=== PATIENT | female | born 1950 | race Caucasian/White ===

== ENCOUNTER → 2022-10-12 16:15 | Outpatient (BNVA) | payer MEDICARE, SELFPAY | PROVIDERS: PCP Physician Assistant Medical; Visit Provider Internal Medicine Endocrinology, Diabetes & Metabolism | DX: M81.0 Age-related osteoporosis without current pathological fracture (principal) | CPT/HCPCS: 99202 ==

== ENCOUNTER → 2023-02-19 11:28 | Outpatient (BNVA) | payer MEDICARE, SELFPAY | PROVIDERS: PCP Physician Assistant Medical; Visit Provider Internal Medicine Endocrinology, Diabetes & Metabolism | DX: M81.0 Age-related osteoporosis without current pathological fracture (principal) | CPT/HCPCS: 99212 ==

== ENCOUNTER 2023-06-25 10:34 | Outpatient (AMB) | payer MEDICARE, SELFPAY ==
--- NOTE | 2023-06-25 10:39 | A.OFFVIS_ITS ---
Intake Vital Signs 06/25/23 10:41 Height 5 ft 3.43 in Weight 130 lb 15.273 oz BMI 22.9 BP 130/72 Blood Pressure Location Lt brachial Position Sitting Pulse 80 Pulse Source Pulse Oximeter Intake Visit Reasons: f/u osteoporosis Intake Note: Patient present for Osteoporosis follow up visit. 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 Phillips at [facility] First diagnosed in 2019. Received treatment in the past with Reclast ,in 2019 . Tolerated treatment well without complication. No history of pathologic fracture or ONJ. Has several servings of dietary calcium per day in the form of cheese, brocoli . Not Takes Calcium supplement Takes ? IU of Vitamin D daily. Denies ever using PPI, anticoagulant, antiepileptic or glucocorticoid medication. 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 Nl menmses Denies history of Kidney stones: Denies family history of Osteoporosis or hip fracture. UTD on dental cleanings and sees dentist every 6 months. No planned upcoming dental work or extractions. DXA dated 10/21/18 :T-Score of -3.0 in L-S repeat DEXA bone density showed a T- score femoral neck of -2.9 Labs: Secondary workup was negative [facility] Medical History (Updated 10/12/22 @ 16:28 by Seb Muhammad MD) Osteoporosis Surgical History Hx of appendectomy Family History Mother Alzheimer disease Father No problems noted. Social History Alcohol intake: current Alcohol type: hard liquor and other Patient Tobacco Use Status: Former Tobacco user Quit Date: >45 yrs ago Assessment & Plan Assessment & Plan (1) Osteoporosis: Code(s): M81.0 - Age-related osteoporosis without current pathological fracture Plan: This is a 73-year-old white female diagnosed with osteoporosis. Secondary workup was negative The plan is to talk about possible pharmacologic treatment including reinitiating Reclast versus p.o. bisphosphonate versus Prolia. Also, discussed checking urine NTX to see if suppressed. If suppressed may following vitamin-D and calcium without pharmacologic therapy until increases and then can give anti resorptive agent. She is choosing this option. Orders: Orders Collagen Crosslinks NTX Today M81.0 - Age-related osteoporosis without current pathological fracture Coding Level of Care Code Est Pt Level 3 (01147) Diagnoses Osteoporosis M81.0
[2023-06-25 10:41] VITALS: BP 130/72; PULSE 80; BMI 22.9
== END 2023-06-25 11:09 | disposition home or self-care (01) ==
PROVIDERS: PCP Physician Assistant Medical; Visit Provider Internal Medicine Endocrinology, Diabetes & Metabolism
DX: M81.0 Age-related osteoporosis without current pathological fracture (principal)
CPT/HCPCS: 99213

== ENCOUNTER → 2023-06-25 10:34 | Outpatient (BNVA) | payer MEDICARE, SELFPAY | PROVIDERS: PCP Physician Assistant Medical; Visit Provider Internal Medicine Endocrinology, Diabetes & Metabolism | DX: M81.0 Age-related osteoporosis without current pathological fracture (principal) | CPT/HCPCS: 99212 ==

== ENCOUNTER 2023-07-11 09:48 | Outpatient (REF) | payer MEDICARE, SELFPAY ==
[2023-07-18 21:38] LABS: N-Telopeptide 34 (see note); NTXCreaRU 78 mg/dL (20-275)
== END 2023-07-11 09:49 | disposition home or self-care (01) ==
LOC: HO.10HDLNP 09:48
PROVIDERS: Visit Provider Internal Medicine Endocrinology, Diabetes & Metabolism
DX: M81.0 Age-related osteoporosis without current pathological fracture (principal)
CPT/HCPCS: 82523

== ENCOUNTER 2024-01-28 10:33 | Outpatient (AMB) | payer MEDICARE, SELFPAY ==
[2024-01-28 10:36] VITALS: BP 132/70; PULSE 68; BMI 22.7
--- NOTE | 2024-01-28 10:36 | MHC.OFFVIS ---
Vital Signs 01/28/24 10:36 Height 5 ft 3.43 in Weight 129 lb 10.109 oz BMI 22.7 BP 132/70 Blood Pressure Location Lt brachial Position Sitting Pulse 68 Pulse Source Pulse Oximeter Intake Visit Reasons: Osteoporosis Intake Note: Patient presents today for Osteoporosis follow up. 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 Phillips at [facility] First diagnosed in 2019. Received treatment in the past with Reclast ,in 2019 . Tolerated treatment well without complication. No history of pathologic fracture or ONJ. Has several servings of dietary calcium per day in the form of cheese, brocoli . Not Takes Calcium supplement Takes ? IU of Vitamin D daily. Denies ever using PPI, anticoagulant, antiepileptic or glucocorticoid medication. 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 Nl menmses Denies history of Kidney stones: Denies family history of Osteoporosis or hip fracture. UTD on dental cleanings and sees dentist every 6 months. No planned upcoming dental work or extractions. DXA dated 10/21/18 :T-Score of -3.0 in L-S repeat DEXA bone density showed a T-score femoral neck of -2.9 Labs: Secondary workup was negative [facility] Medical History (Updated 10/12/22 @ 16:28 by Seb Muhammad MD) Osteoporosis Surgical History Hx of appendectomy Family History Mother Alzheimer disease Father No problems noted. Social History Alcohol intake: current Alcohol type: hard liquor and other Patient Tobacco Use Status: Former Tobacco user Quit Date: >45 yrs ago Physical Exam Vital Signs: Last Vital Signs Pulse 68 01/28/24 10:36 BP 132/70 01/28/24 10:36 BMI result Body Mass Index 22.7 Assessment & Plan Assessment & Plan (1) Osteoporosis: Code(s): M81.0 - Age-related osteoporosis without current pathological fracture Category: Medical Plan: This is a 73-year-old white female diagnosed with osteoporosis. Secondary workup was negative. Received Reclast in the past with suppressed NTX The plan is to talk about possible pharmacologic treatment including reinitiating Reclast versus p.o. bisphosphonate versus Prolia. Also, discussed checking urine NTX to see if suppressed. If suppressed may following vitamin-D and calcium without pharmacologic therapy until increases and then can give anti resorptive agent. Patient is opting to hold off on pharmacologic therapy until thel repeat DEXA 1 year Orders: Orders Collagen Crosslinks NTX Today M81.0 - Age-related osteoporosis without current pathological fracture XR DEXA axial skeleton Today M81.0 - Age-related osteoporosis without current pathological fracture Coding Level of Care Code Est Pt Level 3 (34781) Diagnoses Osteoporosis M81.0
== END 2024-01-28 11:02 | disposition home or self-care (01) ==
PROVIDERS: PCP Physician Assistant Medical; Visit Provider Internal Medicine Endocrinology, Diabetes & Metabolism
DX: M81.0 Age-related osteoporosis without current pathological fracture (principal)
CPT/HCPCS: 99213

== ENCOUNTER → 2024-01-28 10:33 | Outpatient (BNVA) | payer MEDICARE, SELFPAY | PROVIDERS: PCP Physician Assistant Medical; Visit Provider Internal Medicine Endocrinology, Diabetes & Metabolism | DX: M81.0 Age-related osteoporosis without current pathological fracture (principal) | CPT/HCPCS: 99212 ==

== ENCOUNTER 2025-01-27 10:03 | Outpatient (AMB) | payer MEDICARE, SELFPAY ==
[2025-01-27 10:07] VITALS: BP 142/66; PULSE 69; O2SAT 90; BMI 22.9
--- NOTE | 2025-01-27 10:07 | MHC.OFFVIS ---
Vital Signs 01/27/25 10:07 Height 5 ft 3.43 in Weight 130 lb 15.273 oz BMI 22.9 BP 142/66 H Blood Pressure Location Lt brachial Position Sitting Pulse 69 Pulse Source Pulse Oximeter Pulse Oximetry (%) 90 L Oxygen Delivery Method Room Air Intake Visit Reasons: Osteoporosis Intake Note: Patient presents today for Osteoporosis follow up. Kaiako Kura [place] Maori Required: No Accompanied by: Self / Same As Patient Allergies No Known Allergies Allergy (Verified 01/27/25 10:12) Medication List - Last Reconciled 01/27/25 by Seb Muhammad MD amitriptyline 25 mg PO BEDTIME atorvastatin 20 mg PO DAILY calcium carbonate (Calcium 600) 600 mg PO DAILY cyclobenzaprine 10 mg PO TID dicyclomine 10 mg PO BID multivitamin 1 tab PO DAILY sumatriptan succinate 100 mg PO DAILY PRN HPI Comments Details: 74 YO F with is seen in consultation at the request of PCP for Osteoporosis.Saw Dr. Phillpis at [facility] First diagnosed in 2019. Received treatment in the past with Reclast ,in 2019 . Tolerated treatment well without complication. No history of pathologic fracture or ONJ. Has several servings of dietary calcium per day in the form of cheese, brocoli . Not Takes Calcium supplement Takes ? IU of Vitamin D daily. Denies ever using PPI, anticoagulant, antiepileptic or glucocorticoid medication. 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 Nl menmses Denies history of Kidney stones: Denies family history of Osteoporosis or hip fracture. UTD on dental cleanings and sees dentist every 6 months. No planned upcoming dental work or extractions. DXA dated 10/21/18 :T-Score of -3.0 in L-S repeat DEXA bone density showed a T-score femoral neck of -2.9 Labs: Secondary workup was negative The patient is a 74-year-old female presenting with the need for bone density testing and bone turnover marker evaluation. She has a history of osteoporosis, and there was a previous misunderstanding about her bone density test scheduling, as it was not conducted as planned. The patient is interested in assessing bone turnover markers and was advised to provide a second morning urine sample in a fasting state. However, due to having eaten early in the morning, she could not proceed with this test on the same day. She reports no recent fractures and continues to take calcium and vitamin D supplements. [facility] Medical History (Updated 10/12/22 @ 16:28 by Seb Muhammad MD) Osteoporosis Surgical History Hx of appendectomy Family History Mother Alzheimer disease Father No problems noted. Social History Alcohol intake: current Alcohol type: hard liquor and other Patient Tobacco Use Status: Former Tobacco user Physical Exam Vital Signs: Last Vital Signs Pulse 69 01/27/25 10:07 BP 142/66 H 01/27/25 10:07 Pulse Ox 90 L 01/27/25 10:07 Oxygen Delivery Method Room Air 01/27/25 10:07 BMI result Body Mass Index 22.9 Assessment & Plan Assessment & Plan (1) Osteoporosis: Code(s): M81.0 - Age-related osteoporosis without current pathological fracture Category: Medical Plan: This is a 74-year-old white female diagnosed with osteoporosis. Secondary workup was negative. Received Reclast in the past with suppressed NTX The plan is to repeat DEXA bone density as well as urine NTX and determine whether pharmacologic treatment is necessary 1. Osteoporosis The patient needs a bone density test to monitor her osteoporosis, which was not done due to scheduling issues. The test will be rescheduled closer to her home. She also requires a bone turnover marker evaluation, with a fasting urine sample needed for analysis. Her current treatment includes calcium and vitamin D supplements, and weight-bearing exercises are recommended. Follow-up is planned in three months. I discussed with the patient the importance of completing the bone density test and the bone turnover marker evaluation. We addressed the logistical challenges that led to the tests not being done previously and agreed to pursue these tests at a facility closer to her location. I explained the procedure for the bone turnover marker test, emphasizing the need for a fasting urine sample. We talked about the benefits of weight-bearing exercises in supporting bone health. The patient was informed about the continued use of calcium and vitamin D supplements and was reassured that no immediate concerns, such as fractures, were present. We agreed on a follow-up in three months to review test results and reassess her treatment plan. - Schedule a bone density test at a nearby facility. - Provide a fasting urine sample for the bone turnover marker test. - Continue taking calcium and vitamin D supplements as prescribed. - Engage in weight-bearing exercises to support bone health. - Follow up in three months for reassessment. The patient had an opportunity to ask questions regarding treatment plan. The patient expressed understanding and agreement with the above treatment plan. Patient was informed and verbally consented to the use of an ambient scribe for clinic note documentation during this visit. Coding Level of Care Code Est Pt Level 3 (16922) Diagnoses Osteoporosis M81.0
--- OUTSIDE RECORDS SUMMARY | 2025-01-27 10:59 | XMS_ITS | Data Portability ---
Author Organization [facility] Pain Managem vandana, PAIN OFFICE Address [address] 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 On exam she has positive facet loading with tenderness in L4-5 and L5-S1 facet region in the right lumbar region. MRI Lumbar spine shows arthritic changes in the facet at L4-5 and L5-S1 levels. Currently her back pain is her worse pain.She is here for a Radio frequency ablation of right Lumbar facet at Right L4-5 and L5-S1 levels under fluoroscopic guidance . The risks and benefits of the procedure were discussed in detail. She wishes to proceed. She will follow up in six weeks. [email or web address] Not available 12/24/2023 16:11:22 02/14/2024 02/14/2024 Sharlene Vasquez is a 73 year old woman with right sided low back pain which is worse for the past five years. On exam she has positive facet loading with tenderness in L4-5 and L5-S1 facet region in the right lumbar region. MRI Lumbar spine shows arthritic changes in the facet at L4-5 and L5-S1 levels. Currently her back pain is her worse pain.She is here for a follow up after a Radio frequency ablation of right Lumbar facet at Right L4-5 and L5-S1 levels under fluoroscopic guidance . She reports 90%pain benefit which is ongoing. She can follow up as needed. [email or web address] Not available 02/14/2024 11:05:57 05/14/2024 05/14/2024 Sharlene Vasquez is a 73 year old woman with right sided low back pain which is worse for the past five years. On exam she has positive facet loading with tenderness in L4-5 and L5-S1 facet region in the right lumbar region. MRI Lumbar spine shows arthritic changes in the facet at L4-5 and L5-S1 levels. Currently her back pain is her worse pain. She is here for a repeat Lumbar facet joint steroid injections at Right L4-5 and L5-S1 levels under fluoroscopic guidance . The risks and benefits of the procedure were discussed in detail. She wishes to proceed. She will follow up in 8 weeks. [email or web address] Not available 05/14/2024 16:52:39 09/30/2024 09/30/2024 Sharlene Vasquez is a 74 year old woman with right sided low back pain which is worse for the past five years. On exam she has positive facet loading with tenderness in L4-5 and L5-S1 facet region in the right lumbar region. MRI Lumbar spine shows arthritic changes in the facet at L4-5 and L5-S1 levels. Currently her back pain is her worse pain. She is here for a repeat Lumbar facet joint steroid injections at Right L4-5 and L5-S1 levels under fluoroscopic guidance . The risks and benefits of the procedure were discussed in detail. She wishes to proceed. She will follow up in 12 weeks. [email or web address] Not available 09/30/2024 15:51:22 12/30/2024 12/30/2024 Sharlene Vasquez is a 74 year old woman with right sided low back pain which is worse for the past five years. On exam she has positive facet loading with tenderness in L4-5 and L5-S1 facet region in the right lumbar region. MRI Lumbar spine shows arthritic changes in the facet at L4-5 and L5-S1 levels. Currently her back pain is her worse pain. She is here for a repeat Lumbar facet joint steroid injections at Right L4-5 and L5-S1 levels under fluoroscopic guidance . The risks and benefits of the procedure were discussed in detail. She wishes to proceed. She will follow up in 12 weeks. She is interested in the intracept procedure and will discuss with her PCP. [email or web address] Not available 12/30/2024 11:34:16 Plan of Treatment Reminders Order Date Submit Date Provider Last Modified By Organization Details Last Modified Time Details Appointments PROCEDURE 2024 10:00A M Joleen mata MD Not available Not available Not available Lab None recorded. Referral None recorded. Procedures None recorded. Surgeries None recorded. Imaging None recorded. Medication Orders None recorded. Patient TargetsNo targets recorded. Patient Instructions Encounter Date Encounter Id Patient Instructions Last Modified By Organization Details Last Modified Time 12/24/2023 [id number] She was advised against bed rest lasting longer than four days and to continue activities as tolerated. [email or web address] Not available 12/24/2023 16:10:45 02/14/2024 [id number] She was advised against bed rest lasting longer than four days and to continue activities as tolerated. [email or web address] Not available 02/14/2024 11:05:14 05/14/2024 [id number] She was advised against bed rest lasting longer than four days and to continue activities as tolerated. [email or web address] Not available 05/14/2024 16:52:40 09/30/2024 [id number] She was advised against bed rest lasting longer than four days and to continue activities as tolerated. [email or web address] Not available 09/30/2024 14:56:19 12/30/2024 [id number] She was advised against bed rest lasting longer than four days and to continue activities as tolerated. [email or web address] Not available 12/30/2024 11:31:33 Reason for Referral None Reported. Problems Name Problem SNOMED Code Status Onset Date Resolution Date Notes Provider Name and Address Organization Details Recorded Time Lumbosacral spondylosis without myelopathy [id number] Active Joleen mata MD [address] , [address], [place], [address], [place] [facility] 14:09:24 Problem Notes None recorded. Procedures Surgical History Date Name Laterality Status Provider Name and Address Organization Details Recorded Time 12/31/19 25 Fluoroscopic Guided Lumbar Facet Steroid Injections of levels completed Joleen Ramirez MD [address] , [address], [place], [address], [place] [facility] 12/30/2024 11:32:43 09/30/19 25 Fluoroscopic Guided Lumbar Facet Steroid Injections of levels completed Joleen Ramirez MD [address] , [address], [place], [address], [place] [facility] 09/30/2024 15:32:03 05/14/20 24 Fluoroscopic Guided Lumbar Facet Steroid Injections of levels completed [facility] [address] [facility] [address], [place], [address], [place] [facility] 05/14/2024 16:53:31 12/24/19 24 Radiofrequency of Lumbar/Sacral medial branches supplying the facets under fluoroscopic guidance completed Joleen Ramirez MD [address] , [address], [place], [address], [place] [facility] 12/24/2023 16:10:14 07/31/20 23 Fluoroscopic Guided Lumbar Facet Steroid Injections of levels completed Joleen Ramirez MD [address] , [address], [place], [address], [place] [facility] 07/31/2023 09:58:57 04/24/20 23 Fluoroscopic Guided Lumbar Facet Steroid Injections of levels completed Joleen Ramirez MD [address] , [address], [place], [address], [place] [facility] 04/24/2023 10:55:11 01/16/20 23 Fluoroscopic Guided Lumbar Facet Steroid Injections of levels completed [facility]oleen Ramirez [facility] [address] [facility] [address], [place], [address], [place] [facility] 01/15/2023 16:21:58 09/02/19 22 repair of urinary bladder completed Yanet Shea [place] [facility] 01/14/2023 13:42:45 Appendectomy completed Yanet Shea [place] [facility] 01/14/2023 13:42:14 Imaging Results None recorded. Procedure Notes None recorded. Medical Equipment None Reported. Allergies No known drug allergies Medications Name Sig Start Date Stop Date Status Note LastModified by Organization Details LastModified Time cyclobenzap rine 10 mg tablet TAKE 1 TABLET BY MOUTH THREE TIMES A DAY 01/14 completed Not Available Not Available Not Available acetaminoph en 325 mg tablet TAKE 2 TABS BY MOUTH EVERY 4 HOURS NEEDED FOR PAIN active Not Available Not Available No t Available atorvastati n 20 mg tablet TAKE 1 TABLET BY MOUTH EVERYDAY AT BEDTIME active Not Available Not Available No t Available sumatriptan 100 mg tablet TAKE 1 TABLET BY MOUTH EVERY DAY NEEDED DIRECTED - MAX OF 2 TABLETS A DAY active Not Available Not Available No t Available meloxicam 15 mg tablet TAKE 1 TABLET BY MOUTH EVERY DAY WITH MEALS FOR 30 DAYS 07/01 completed Not Available Not Available Not Available phenazopyri dine 200 mg tablet TAKE 1 TABLET BY MOUTH THREE TIMES A DAY FOR 2 DAYS 01/14 completed Not Available Not Available Not Available doxycycline hyclate 50 mg capsule TAKE 1 CAPSULE BY MOUTH TWICE A DAY 09/30 completed Not Available Not Available Not Available amoxicillin 500 mg tablet 02/13 completed Not Available Not Available Not Available hydrocortis one 2.5 % topical cream with perineal applicator APPLY A SMALL AMOUNT TO AFFECTED AREA TWICE A DAY NEEDED FOR HEMORRHOI DS active Not Available Not Available No t Available amitriptyli ne 25 mg tablet TAKE 1 TABLET BY MOUTH EVERY DAY AT BEDTIME active Not Available Not Available No t Available erythromyci n 5 mg/gram (0.5 %) eye ointment APPLY TO AFFECTED AREA OF LEFT UPPER LID THREE TIMES A DAY active Not Available Not Available No t Available ibuprofen 400 mg tablet TAKE 1 TABLET BY MOUTH EVERY 4 HOURS NEEDED FOR PAIN 02/13 completed Not Available Not Available Not Available omeprazole 20 mg capsule,del ayed release TAKE 1 CAPSULE EVERY DAY BY ORAL ROUTE BEFORE MEALS FOR 30 DAYS. 01/14 completed Not Available Not Available Not Available ibuprofen 600 mg tablet active Not Available Not Available Not Available estradiol 0.01% (0.1 mg/gram) vaginal cream USE 1 GRAM VAGINALLY EVERY SATURDAY AND SATURDAY active Not Available Not Available No t Available methylpredn isolone 4 mg tablets in a dose pack TAKE 6 TABLETS ON DAY 1 DIRECTED ON PACKAGE AND DECREASE BY 1 TAB EACH DAY FOR A TOTAL OF 6 DAYS 01/14 completed Not Available Not Available Not Available dicyclomine 10 mg capsule TAKE 1 CAPSULE BY MOUTH THREE TIMES A DAY NEEDED active Not Available Not Available No t Available tobramycin 0.3 %-dexametha sone 0.1 % eye drops,suspe nsion INSTILL 1 DROP INTO LEFT EYE 4 TIMES DAILY FOR 1 WEEK active Not Available Not Available No t Available oxycodone 5 mg tablet TAKE 1 TABLET BY MOUTH EVERY 6 HOURS, NEEDED FOR PAIN 01/14 completed Not Available Not Available Not Available cyclosporin e 0.05 % eye drops in a dropperette INSTILL 1 DROP INTO BOTH EYES TWICE A DAY active Not Available Not Available No t Available doxycycline hyclate Takes 1 - 2 capsules daily prn for GI upset 02/13 completed Not Available Not Available Not Available multivitami n Takes 1 tablet daily active Not Available Not Available No t Available Gavilax 17 gram/dose oral powder TAKE 17 GM BY MOUTH DAILY,INS TR:DISSOL VE IN WATER BEFORE TAKING 02/14 completed Not Available Not Available Not Available doxycycline 100mg capsule and topical skin cleanser no.19 01/14 completed Not Available Not Available Not Available Vitals Date Recorded Body height Heart rate Oxygen saturation Oxygen saturation in Arterial blood by Pulse oximetry Systolic blood pressure Diastolic blood pressure Provider Name and Address Organization Details Last Updated DateTime 5 160.02 cm 66 /min 99 % 99 % 158 mm[Hg] 80 mm[Hg] Stephania Garcia [facility] Pain Management 5 10:56:25 Date Recorded Body height Heart rate Oxygen saturation Oxygen saturation in Arterial blood by Pulse oximetry Systolic blood pressure Diastolic blood pressure Provider Name and Address Organization Details Last Updated DateTime 4 160.02 cm 65 /min 99 % 99 % 150 mm[Hg] 74 mm[Hg] Dania Samayoa [facility] Pain Management 4 14:28:28 Date Recorded Body height Heart rate Oxygen saturation Oxygen saturation in Arterial blood by Pulse oximetry Systolic blood pressure Diastolic blood pressure Provider Name and Address Organization Details Last Updated DateTime 5 160.02 cm 66 /min 100 % 100 % 136 mm[Hg] 77 mm[Hg] Stephania Garcia [facility] Pain Management 5 11:09:24 Date Recorded Body height Body mass index (BMI) Body weight Heart rate Oxygen saturation Oxygen saturation in Arterial blood by Pulse oximetry Systolic blood pressure Diastolic blood pressure Provider Name and Address Organization Details Last Updated DateTime 4 160.02 cm 23 kg/m2 95841.0 1 g 61 /min 98 % 98 % 124 mm[Hg] 62 mm[Hg] Joleen mata MD [address] [facility] , [address], [place], [address], [place] [facility] 4 10:51:37 Date Recorded Body height Oxygen saturation Oxygen saturation in Arterial blood by Pulse oximetry Heart rate Systolic blood pressure Diastolic blood pressure Provider Name and Address Organization Details Last Updated DateTime 4 160.02 cm 97 % 97 % 76 /min 149 mm[Hg] 72 mm[Hg] Jovana antonio [place] [facility] 4 10:59:47 Social History Question Answer Notes LastModified by Organizat ion Details LastModified Time Tobacco Smoking Status Former Smoker Yanet Jansenjacob hernandez, [place] [facility] 01/14/2023 13:39:44 Do You Have An Advance Directive? Yes Zac, Spouse Information not available 01/14/2023 Are You Blind Or Do You Have Difficulty Seeing? No [email or web address] Information not available 01/14/2023 In The 14 Days Before Symptom Onset, Have You Had Close Contact With A Laboratory-confir med COVID-19 While That Case Was Ill? No [email or web address] Information not available 01/14/2023 In The 14 Days Before Symptom Onset, Have You Had Close Contact With A Person Who Is Under Investigation For COVID-19 While That Person Was Ill? No [email or web address] Information not available 01/14/2023 Have You Been To An Area Known To Be High Risk For COVID-19? No [email or web address] Information not available 01/14/2023 Are You Deaf Or Do You Have Serious Difficulty Hearing? No [email or web address] Information not available 01/14/2023 What Is The Highest Grade Or Level Of School You Have Completed Or The Highest Degree You Have Received? [id number] [email or web address] Information not available 01/14/2023 How Many Days Of Moderate To Strenuous Exercise, Like A Brisk Walk, Did You Do In The Last 7 Days? 0 [email or web address] Information not available 01/14/2023 What Was The Date Of Your Most Recent Tobacco Screening? 01/14/2023 Information not available 01/14/2023 What Is Your Relationship Status? [email or web address] Information not available 01/14/2023 How Many Years Have You Smoked Tobacco? 10 [email or web address] Information not available 01/14/2023 Do You Have Difficulty Walking Or Climbing Stairs? No [email or web address] Information not available 01/14/2023 Sex: Unknown Functional Status Question Answer Note LastModified by Organizat ion Details LastModified Time Do you or have you ever used any other forms of tobacco or nicotine? No [email or web address] Information not available 01/14/2023 What is your level of alcohol consumption? Occasional [email or web address] Information not available 01/14/2023 Are you currently employed? No retireed [email or web address] Information not available 01/14/2023 Do you have difficulty doing errands alone? No [email or web address] Information not available 01/14/2023 Do you have difficulty dressing or bathing? No [email or web address] Information not available 01/14/2023 Mental Status Question Answer Note LastModified by Organization D etails LastModified Time Do you feel stressed (tense, restless, nervous, or anxious, or unable to sleep at night)? [id number] [email or web address] Information not available 01/14/2023 Family History Relationship Description Onset Age of this Age Resolved Age Notes LastModified by Organization Details LastModified Time Father No current problems or disability 92 dies from natura l causes [email or web address] Not available 01/14/2023 13:38:07 Mother No current problems or disability 89 alzhei mers [email or web address] Not available 01/14/2023 13:38:23 Medical History Condition Response Diabetes N Anxiety Disorder N Gout N Neuropathy/Neuralgia N Arthritis Y Seizures/Epilepsy N Kidney Stones N Cancer Y Stroke N Asthma N Depression N COPD N HIV/AIDS N Headache N Hepatitis C N Migrane Y Bipolar Disorder N GERD/Reflux Y Liver Disease N Pulmonary Embolism N Fibromyalgia N Osteoporosis Y Gynecological HistoryNo gynecological history recorded. Obstetrics History GPAL:G 0 P 0 0 0 0 Past Encounters Encounter ID Performer Location Encounter Start Date Encounter Closed Date Diagnosis/Indication Diagnosis SNOMED-CT Code Diagnosis ICD10 Code Diagnosis Note [id number] Joleen Ramirez MD [facility] [address] [facility] [place] [address] 01/14/2023 13:14:29 01/14/2023 14:21:05 Lumbosacral spondylosis without myelopathy 51128484 M47.817 Degenerati on of lumbar intervertebral disc 90027349 M51.36 [id number] Joleen Ramirez MD [facility] [address] [place] [address] 01/15/2023 14:53:36 01/15/2023 16:26:55 Lumbosacral spondylosis without myelopathy 44655142 M47.817 Degenerati on of lumbar intervertebral disc 34175744 M51.36 [id number] Joleen Ramirez MD [facility] [address] [facility] [place] [address] 02/14/2023 11:22:50 02/14/2023 13:38:08 Lumbosacral spondylosis without myelopathy 63237705 M47.817 Degenerati on of lumbar intervertebral disc 99497124 M51.36 [id number] Joleen Ramirez MD [facility] [address] [place] [address] 03/28/2023 15:20:08 03/28/2023 16:04:19 Lumbosacral spondylosis without myelopathy 18609349 M47.817 Degenerati on of lumbar intervertebral disc 69154063 M51.36 [id number] Joleen Ramirez MD [facility] [address] [place] [address] 04/24/2023 10:18:42 04/24/2023 14:15:42 Lumbosacral spondylosis without myelopathy 86389902 M47.817 Degenerati on of lumbar intervertebral disc 86245616 M51.36 [id number] Joleen Ramirez MD [facility] [address] [place] [address] 07/01/2023 10:57:11 07/01/2023 11:32:18 Lumbosacral spondylosis without myelopathy 62446467 M47.817 Degenerati on of lumbar intervertebral disc 79971956 M51.36 [id number] Joleen Ramirez MD PAIN OFFICE [address] [facility] [place] [address] 07/31/2023 09:21:55 07/31/2023 10:09:05 Lumbosacral spondylosis without myelopathy 84914102 M47.817 Degenerati on of lumbar intervertebral disc 76790361 M51.36 [id number] Joleen Ramirez MD [facility] [address] [facility] [place] [address] 10/11/2023 08:52:22 10/11/2023 11:33:21 Lumbosacral spondylosis without myelopathy 03499378 M47.817 Degenerati on of lumbar intervertebral disc 17813565 M51.36 [id number] Joleen Ramirez MD PAIN OFFICE [address] [facility] [place] [address] 12/24/2023 14:07:51 12/24/2023 16:14:07 Lumbosacral spondylosis without myelopathy 69522827 M47.817 Degenerati on of lumbar intervertebral disc 80684228 M51.36 [id number] Joleen Ramirez MD PAIN OFFICE [address] [place] [address] 02/14/2024 10:46:07 02/14/2024 11:06:40 Lumbosacral spondylosis without myelopathy 17752792 M47.817 Degenerati on of lumbar intervertebral disc 99219452 M51.36 [id number] Joleen Ramirez MD [facility] [address] [facility] [place] [address] 05/14/2024 10:52:51 05/14/2024 17:03:56 Lumbosacral spondylosis without myelopathy 54225348 M47.817 Degenerati on of lumbar intervertebral disc 84247909 M51.36 [id number] Joleen Ramirez MD [facility] [address] [place] [address] 09/30/2024 10:47:10 09/30/2024 15:59:14 Lumbosacral spondylosis without myelopathy 68280544 M47.817 Degenerati on of lumbar intervertebral disc 51232154 M51.369 [id number] Joleen Ramirez MD PA[facility] [address] [facility] [address] [place] [address] 12/30/2024 10:49:14 12/30/2024 15:51:06 Lumbosacral spondylosis without myelopathy 31991907 M47.817 Degenerati on of lumbar intervertebral disc 91141052 M51.369 Health Concerns Section Related Observation LastModified by Organization Detai ls LastModified Time None Recorded Concern Status LastModified by Organization Details LastModified Time None Recorded Advance Directives Directive Y: zac, spouse Payers Encounter Date Sequence Insurance Name Policy Number Policy Zaragoza Covered Member ID Zaragoza Member ID Guarantor Name 12/24/2023 2 [place] [id number] Sharlene Vasquez [id number] Sharlene Vasquez 12/24/2023 1 [place] Sharlene Vasquez [id number] Sharlene [place] 02/14/2024 2 [place] [id number] Sharlene Vasquez [id number] Sharlene [address] 02/14/2024 1 [place] Sharlene Vasquez [id number] Sharlene [address] 05/14/2024 2 [place] [id number] Sharlene Vasquez [id number] Sharlene [address] 05/14/2024 1 [place] Sharlene Vasquez [id number] Sharlene [place] 09/30/2024 2 [place] [id number] Sharlene Vasquez [id number] Sharlene [place] 09/30/2024 1 [place] Sharlene Vasquez [id number] Sharlene Vasquez 12/30/2024 2 [place] [id number] Sharlene Vasquez [id number] Sharlene Vasquez 12/30/2024 1 [place] Sharlene Vasquez [id number] Sharlene Vasquez Notes Date Note Type Note Provider Name and Address Organization Details Recorded Time 12/24/2023 text/html She is here for a radiofrequency ablation of right lumbar medial branches of L, L5 and S1 nerves under fluoroscopic guidance Joleen Ramirez MD [address] , [address], [place], [address], [place] [facility] 12/24/2023 16:15:21 02/14/2024 text/html She is here for a follow up after a radiofrequency ablation of her medial nerves . She reports good pain benefit which is ongoing. Current pain level is 0/10. She states she is sleeping better . She is able to turn in bed without pain. She has no history of bladder or bowel incontinence. Joleen Ramirez MD [address] , [address], [place], [address], [place] [facility] 02/17/2024 08:54:46 05/14/2024 text/html She is here for a right lumbar facet joint injection under fluoroscopic guidance Joleen Ramirez MD [address] , [address], [place], [address], [place] [facility] 05/15/2024 09:56:16 09/30/2024 text/html She is here for a right lumbar facet joint injection under fluoroscopic guidance Joleen Ramirez MD [address] , [address], [place], [address], [place] [facility] 10/01/2024 14:24:12 12/30/2024 text/html She is here for a right lumbar facet joint injection under fluoroscopic guidance Joleen Ramirez MD [address] , [address], [place], [address], [place] [facility] 12/30/2024 15:54:37 OBGyn Episode No OBEpisode recorded.
== END 2025-01-27 10:24 | disposition home or self-care (01) ==
LOC: HO.ENCR 10:03
PROVIDERS: PCP Physician Assistant Medical; Visit Provider Internal Medicine Endocrinology, Diabetes & Metabolism
DX: M81.0 Age-related osteoporosis without current pathological fracture (principal)
CPT/HCPCS: 99213

== ENCOUNTER → 2025-01-27 10:03 | Outpatient (BNVA) | payer MEDICARE, SELFPAY | PROVIDERS: PCP Physician Assistant Medical; Visit Provider Internal Medicine Endocrinology, Diabetes & Metabolism | DX: M81.0 Age-related osteoporosis without current pathological fracture (principal) | CPT/HCPCS: 99212 ==

== ENCOUNTER 2025-06-03 09:39 | Outpatient (REF) | payer MEDICARE, SELFPAY ==
--- OUTSIDE RECORDS SUMMARY | 2025-06-03 10:44 | XMS_ITS | Data Portability ---
Author Organization [facility] Pain Managem ent PAIN OFFICE Address [address] [facility] [address] [place] [address] Care Team Providers Care Creeler Name Role Phone MICHAEL DOE Referring Provider TITA MEDRANO Primary Care Provider [phone] Assessment Encounter Date Assessment Date Assessment LastModified [...] She will follow up in six weeks. [email or web address] Not available 12/24/2023 16:11:22 02/14/2024 02/14/2024 Sharlene [...] ongoing. She can follow up as needed. [email or web address] Not available 02/14/2024 11:05:57 05/14/2024 05/14/2024 Sharlene aVsquez is a 73 year old woman with [...] She will follow up in 8 weeks. [email or web address] Not available 05/14/2024 16:52:39 09/30/2024 09/30/2024 Sharlene [...] She will follow up in 12 weeks. [email or web address] Not available 09/30/2024 15:51:22 12/30/2024 12/30/2024 Sharlene [...] procedure and will discuss with her PCP. [email or web address] Not available 12/30/2024 11:34:16 Plan of Treatment Reminders Order Date Submit Date Provider Last Modified By Organization Details Last Modified Time Details Appointments None record ed. Lab None record ed. Referral None record ed. Procedures None record ed. Surgeries None record ed. Imaging None record ed. Medication Orders None record ed. Patient TargetsNo targets recorded. Patient Instructions Encounter Date Encounter Id Patient Instructions Last Modified By Organization Details Last Modified Time 12/24/2023 [id number] She was advised against bed rest lasting longer than four days and to continue activities as tolerated. [email or web address] Not available 12/24/2023 16:10:45 02/14/2024 [id number] She was advised against bed rest lasting longer than four days and to continue activities as tolerated. [email or web address] Not available 02/14/2024 11:05:14 05/14/2024 [id number] She was advised against bed rest lasting longer than four days and to continue activities as tolerated. [email or web address] Not available 05/14/2024 16:52:40 09/30/2024 [id number] She was advised against bed rest lasting longer than four days and to continue activities as tolerated. [email or web address] Not available 09/30/2024 14:56:19 12/30/2024 [id number] She was advised against bed rest lasting longer than four days and to continue activities as tolerated. [email or web address] Not available 12/30/2024 11:31:33 Reason for Referral None Reported. Problems Name Problem SNOMED Code Status Onset Date Resolution Date Notes Provider Name and Address Organization Details Recorded Time Lumbosacral spondylosis without myelopathy 16811388 Active Joleen mata MD [address] [facility] , [address], [place], [address], [place] [facility] 14:09:24 Problem Notes None recorded. Procedures Surgical History Date Name Laterality Status Provider Name and Address Organization Details Recorded Time 12/31/19 25 Fluoroscopic Guided Lumbar Facet Steroid Injections of levels completed Joleen Ramirez [facility] [address] [facility] [address], [place], [address], [place] [facility] 12/30/2024 11:32:43 09/30/19 25 Fluoroscopic Guided Lumbar Facet Steroid Injections of levels completed Joleen Ramirez MD [address] , [address], [place], [address], [place] [facility] 09/30/2024 15:32:03 05/14/20 24 Fluoroscopic Guided Lumbar Facet Steroid Injections of levels completed Joleen Ramirez MD [address] , [address], [place], [address], [place] [facility] 05/14/2024 16:53:31 12/24/19 24 Radiofrequency of Lumbar/Sacral medial branches supplying the facets under fluoroscopic guidance completed Joleen Ramirez MD [address] , [address], [place], [address], [place] [facility] 12/24/2023 16:10:14 07/31/20 23 Fluoroscopic Guided Lumbar Facet Steroid Injections of levels completed Joleen Ramirez MD [address] , [address], [place], [address], [place] [facility] 07/31/2023 09:58:57 04/24/20 23 Fluoroscopic Guided Lumbar Facet Steroid Injections of levels completed Joleen Ramirez MD [address] , [address], [place], [address], [place] [facility] 04/24/2023 10:55:11 01/16/20 23 Fluoroscopic Guided Lumbar Facet Steroid Injections of levels completed Joleen Ramirez MD [address] , [address], [place], [address], [place] [facility] 01/15/2023 16:21:58 [...] saturation in Arterial blood by Pulse oximetry Pain severity - 0-10 verbal numeric rating [Score] - Reported Systolic And Diastolic Provider Name and Address Organization Details Last Updated DateTime 5 160.02 cm 66 /min 99 % 99 % 5 158/80 mm[Hg] Stephania Garcia [facility] 5 10:56:25 Date Recorded Body height Heart rate Oxygen saturation Oxygen saturation in Arterial blood by Pulse oximetry Systolic And Diastolic Provider Name and Address Organization Details Last Updated DateTime 4 160.02 cm 65 /min 99 % 99 % 150/74 mm[Hg] Dania Samayoa [facility] Pain Management 4 14:28:28 Date Recorded Body height Heart rate Oxygen saturation Oxygen saturation in Arterial blood by Pulse oximetry Pain severity - 0-10 verbal numeric rating [Score] - Reported Systolic And Diastolic Provider Name and Address Organization Details Last Updated DateTime 5 160.02 cm 66 /min 100 % 100 % 5 136/77 mm[Hg] Stephania Garcia [facility] Pain Management 5 11:09:24 Date Recorded Body height Body mass index (BMI) Body weight Heart rate Oxygen saturation Oxygen saturation in Arterial blood by Pulse oximetry Pain severity - 0-10 verbal numeric rating [Score] - Reported Systolic And Diastolic Provider Name and Address Organization Details Last Updated DateTime 4 160.02 cm 23 kg/m2 94435.0 1 g 61 /min 98 % 98 % 0 124/62 mm[Hg] Joleen mata MD [address] , [address], [facility] [place], [address], [place] [facility] 4 10:51:37 Date Recorded Body height Oxygen saturation Oxygen saturation in Arterial blood by Pulse oximetry Heart rate Systolic And Diastolic Provider Name and Address Organization Details Last Updated DateTime 4 160.02 cm 97 % 97 % 76 /min 149/72 mm[Hg] Jovana antonio [place] [facility] 4 10:59:47 Social History Question Answer Notes LastModified by Organizat ion Details LastModified Time Tobacco Smoking Status Former Smoker Yanet Rodartelisa hernandez, [place] [facility] 01/14/2023 13:39:44 Do You Have An Advance Directive? Yes Zac, Spouse [email or web address] Information not available 01/14/2023 Are You Blind Or Do You Have Difficulty Seeing? No [email or web address] Information not available 01/14/2023 In The 14 Days Before Symptom Onset, Have You Had Close Contact With A Laboratory-confir med COVID-19 While That Case Was Ill? No Information not available 01/14/2023 In The 14 Days Before Symptom Onset, Have You Had Close Contact With A Person Who Is Under Investigation For COVID-19 While That Person Was Ill? No [email or web address] Information not available 01/14/2023 Have You Been To An Area Known To Be High Risk For COVID-19? No [email or web address] Information not available 01/14/2023 Are You Deaf Or Do You Have Serious Difficulty Hearing? No [email or web address] Information not available 01/14/2023 What Is The Highest Grade Or Level Of School You Have Completed Or The Highest Degree You Have Received? KC06829-6 [email or web address] Information not available 01/14/2023 How Many Days Of Moderate To Strenuous Exercise, Like A Brisk Walk, Did You Do In The Last 7 Days? 0 [email or web address] Information not available 01/14/2023 What Was The Date Of Your Most Recent Tobacco Screening? 01/14/2023 [email or web address] Information not available 01/14/2023 What Is Your Relationship Status? [email or web address] Information not available 01/14/2023 How Many Years Have You Smoked Tobacco? 10 [email or web address] Information not available 01/14/2023 Do You Have Difficulty Walking Or Climbing Stairs? No [email or web address] Information not available 01/14/2023 Sex: Unknown Functional Status Question Answer Note LastModified by Organizat ion Details LastModified Time Do you or have you ever used any other forms of tobacco or nicotine? No Information not available 01/14/2023 What is your level of alcohol consumption? Occasional [email or web address] Information not available 01/14/2023 Are you currently employed? No retireed Information not available 01/14/2023 Do you have difficulty doing errands alone? No [email or web address] Information not available 01/14/2023 Do you have difficulty dressing, bathing, grooming, or toileting? No [email or web address] Information not available 01/14/2023 Mental Status Question Answer Note LastModified by Organization D etails LastModified Time Do you feel stressed (tense, restless, nervous, or anxious, or unable to sleep at night)? [id number] [email or web address] Information not available 01/14/2023 Family History Relationship Description Onset Age of this Age Resolved Age Notes LastModified by Organization Details LastModified Time Father No current problems or disability 92 dies from natura l causes [email or web address] Not available 01/14/2023 13:38:07 Mother No current problems or disability 89 alzhei mers [email or web address] Not available 01/14/2023 13:38:23 Medical History Condition [...] Diagnosis SNOMED-CT Code Diagnosis ICD10 Code Diagnosis IMO Codes Diagnosis Note [id number] Joleen Ramirez MD [facility] [address] [place] [address] 01/14/2023 13:14:29 01/14/2023 14:21:05 Lumbosacral spondylosis without myelopathy 78139279 M47.817 Degenerati on of lumbar intervertebral disc 72698522 M51.36 [id number] Joleen Ramirez MD [facility] [address] [place] [address] 01/15/2023 14:53:36 01/15/2023 16:26:55 Lumbosacral spondylosis without myelopathy 68374796 M47.817 Degenerati on of lumbar intervertebral disc 60971892 M51.36 [id number] Joleen Ramirez MD [facility] [address] [place] [address] 02/14/2023 11:22:50 02/14/2023 13:38:08 Lumbosacral spondylosis without myelopathy 26905345 M47.817 Degenerati on of lumbar intervertebral disc 60236304 M51.36 [id number] Joleen Ramirez MD [facility] [address] [place] [address] 03/28/2023 15:20:08 03/28/2023 16:04:19 Lumbosacral spondylosis without myelopathy 34358313 M47.817 Degenerati on of lumbar intervertebral disc 00735481 M51.36 [id number] Joleen Ramirez MD [facility] [address] [place] [address] 04/24/2023 10:18:42 04/24/2023 14:15:42 Lumbosacral spondylosis without myelopathy 52260624 M47.817 Degenerati on of lumbar intervertebral disc 20100081 M51.36 [id number] Joleen Ramirez MD [facility] [address] [place] [address] 07/01/2023 10:57:11 07/01/2023 11:32:18 Lumbosacral spondylosis without myelopathy 85627830 M47.817 Degenerati on of lumbar intervertebral disc 12787104 M51.36 [id number] Joleen Ramirez MD PAIN OFFICE [address] [place] [address] 07/31/2023 09:21:55 07/31/2023 10:09:05 Lumbosacral spondylosis without myelopathy 72833196 M47.817 Degenerati on of lumbar intervertebral disc 65204581 M51.36 [id number] Joleen Ramirez MD PAIN OFFICE [address] [place] [address] 10/11/2023 08:52:22 10/11/2023 11:33:21 Lumbosacral spondylosis without myelopathy 36725608 M47.817 Degenerati on of lumbar intervertebral disc 89503595 M51.36 [id number] Joleen Ramirez MD PAIN OFFICE [address] [facility] [place] [address] 12/24/2023 14:07:51 12/24/2023 16:14:07 Lumbosacral spondylosis without myelopathy 55092261 M47.817 Degenerati on of lumbar intervertebral disc 14277325 M51.36 [id number] Joleen Ramirez MD PAIN OFFICE [address] [place] [address] 02/14/2024 10:46:07 02/14/2024 11:06:40 Lumbosacral spondylosis without myelopathy 66111928 M47.817 Degenerati on of lumbar intervertebral disc 15182112 M51.36 [id number] Joleen Ramirez MD PAIN OFFICE [address] [place] [address] 05/14/2024 10:52:51 05/14/2024 17:03:56 Lumbosacral spondylosis without myelopathy 46129316 M47.817 Degenerati on of lumbar intervertebral disc 18149310 M51.36 [id number] Joleen Ramirez MD PAIN OFFICE [address] [place] [address] 09/30/2024 10:47:10 09/30/2024 15:59:14 Lumbosacral spondylosis without myelopathy 14952096 M47.817 Degenerati on of lumbar intervertebral disc 85754051 M51.369 [id number] Joleen Ramirez MD PAIN OFFICE [address] [place] [address] 12/30/2024 10:49:14 12/30/2024 15:51:06 Lumbosacral spondylosis without myelopathy 37376901 M47.817 Degenerati on of lumbar intervertebral disc 11635163 M51.369 Health Concerns Section Related Observation LastModified by Organization Detai ls LastModified Time None Recorded Concern Status LastModified by Organization Details LastModified Time None Recorded Advance Directives Directive Y: zac, spouse Payers Insurance Date Sequence Insurance Name Policy Number Policy Zaragoza Covered Member ID Zaragoza Member ID Guarantor Name 08/12/2024 2 [place] [id number] Sharlene Vasquez [id number] Sharlene Teaguecottrivka 12/27/2024 2 [place] [id number] Sharlene Vasquez [id number] Sharlene Riverattrivka 12/27/2024 1 [place] [employer] Sharlene Vasquez [id number] Sharlene Vasquez Notes Date Note Type Note Provider Name and Address Organization Details Recorded Time 12/24/2023 text/html She is here for a radiofrequency ablation of right lumbar medial branches of L, L5 and S1 nerves under fluoroscopic guidance Joleen Ramirez MD [address] , [address], [place], [address], [facility] - Pain Management 12/24/2023 16:15:21 02/14/2024 text/html She is here for a follow up after a radiofrequency ablation of her medial nerves . She reports good pain benefit which is ongoing. Current pain level is 0/10. She states she is sleeping better . She is able to turn in bed without pain. She has no history of bladder or bowel incontinence. Thenu Manikantan, MD [address] [facility] , [address], [place], [address], [place] - [facility] 02/17/2024 08:54:46 05/14/2024 text/html She is here for a right lumbar facet joint injection under fluoroscopic guidance Joleen Ramirez MD [address] [facility] [address], [place], [address], [place] [facility] 05/15/2024 09:56:16 09/30/2024 text/html She is here for a right lumbar facet joint injection under fluoroscopic guidance Joleen Ramirez MD [address] , [address], [place], [address], [place] [facility] 10/01/2024 14:24:12 12/30/2024 text/html She is here for a right lumbar facet joint injection under fluoroscopic guidance Joleen Ramirez MD [address] , [address], [place], [address], [place] [facility] 12/30/2024 15:54:37 OBGyn Episode No OBEpisode recorded.
--- OUTSIDE RECORDS SUMMARY | 2025-06-03 10:44 | XMS_ITS | Clinical Summary ---
Author Organization [facility] [address] [facility] Address [address] [place] [address] Phone Care Team Providers Care Shaper Set Up Operator Name Role Phone Richie Bateman Primary Care Provider [phone] Allergies No known active allergies Medications hydrocortisone (ANUSOL-HC) 2.5 % rectal creamIndications :Hemorrhoids, unspecified hemorrhoid type Insert into the rectum 2 (two) times a day. 30 g 2 5 Active dicyclomine (BENTYL) 10 mg capsule Take 1 capsule (10 mg total) by mouth 3 (three) times a day if needed. 5 Active atorvastatin (LIPITOR) 20 mg tablet Take 1 tablet (20 mg total) by mouth at bedtime. 5 Active SUMAtriptan (IMITREX) 100 mg tablet Take 1 tablet (100 mg total) by mouth 1 (one) time if needed. 5 Active cycloSPORINE (RESTASIS) 0.05 % ophthalmic emulsion Administer 1 drop into both eyes 2 (two) times a day. 5 Active colestipoL (Colestid) 5 gram packetIndication s:Irritable bowel syndrome with diarrhea,Fecal smearing Take 5 g by mouth 2 (two) times a day. 300 g 11 5 03/30/20 26 Active Active Problems Problem Noted Date Diagnosed Date Irritable bowel syndrome with diarrhea Functional dyspepsia 03/30/2025 Pure hypercholesterolemia 03/30/2025 Migraine without aura 03/30/2025 Fecal smearing 03/30/2025 Encounters Date Type Department Care Team Description 03/30/2025 10:20 AM EDT Office Visit Gastroenterology - [address] [place] [address] Silverio Ross MD Irritable bowel syndrome with diarrhea (Primary Dx); Functional dyspepsia; Fecal smearing from Last 3 Months Social History Tobacco Use Types Packs/Day Years Used Date Smoking Tobacco: Never Smokeless Tobacco: Never Tobacco Cessation:Counseling Given: Not Answered Alcohol Use Standard Drinks/Week Comments Yes 0 (1 standard drink = 0.6 oz pur e alcohol) occ Comments Unknown Sex and Gender Information Value Date Recorded Sex Assigned at Female 03/31/2025 1:00 PM EDT Legal Sex Female 11:02 AM EDT Gender Identity Female 03/31/2025 1:00 PM EDT Sexual Orientation Straight 03/31/2025 1: 00 PM EDT Obstetrics History Last Filed Vital Signs Vital Sign Reading Time Taken Comments Blood Pressure - - Pulse - - Temperature - - Respiratory Rate - - Oxygen Saturation - - Inhaled Oxygen Concentration - - Weight 59 kg (130 lb) 03/30/2025 10:52 AM EDT Height 158.8 cm (5' 2.5 ) 03/30/2025 10:52 AM ED T Body Mass Index 23.4 03/30/2025 10:52 AM EDT Plan of Treatment Health Maintenance Due Date Last Done Comments Zoster Vaccines (3 of 3) 03/30/2019 019, 02/25/2018, 09/09/2012 Cholesterol Screening (Lipid Panel) 04/03/2024 Falls Risk Assessment 04/03/2024 Hepatitis C Screening 04/03/2024 Medicare Annual Wellness Visit 04/03/2024 Social Influencers of Health Screening 04/03/2024 Depression Screening 09/02/2024 RSV Immunization Adult Patients (1 - 1-dose 75+ series) 2025 COVID-19 Vaccine ( - 2024- season) 2025 06/08/2021, 11/12/2020, 10/20/2020 Influenza Vaccine (#1) 2025 , 05/24/2020, 06/02/2019, Additional history exists DTaP,Tdap,and Td Vaccines (4 - Td or Tdap) 10/06/2028 10/06/2018, 12/29/2009, 07/11/1999 Osteoporosis Screening (Bone Density Screening) 10/21/2028 10/21/2018 Colorectal Cancer Screening: Colonoscopy 05/13/2035 05/13/2025 Pneumococcal Vaccine: 50+ Years Completed 05/25/2020, 10/03/2017, 10/01/2016, Additional history exists Breast Cancer Screening Discontinued 03/13/2025 HIB Vaccines Aged Out No longer eligi ble based on patient's age to complete this topic HPV Vaccines Aged Out No longer eligi ble based on patient's age to complete this topic Hepatitis A Vaccines Aged Out No long er eligible based on patient's age to complete this topic Hepatitis B Vaccines Aged Out No long er eligible based on patient's age to complete this topic IPV Vaccines Aged Out No longer eligi ble based on patient's age to complete this topic MMR Vaccines Aged Out No longer eligi ble based on patient's age to complete this topic Meningococcal ACWY Vaccine Aged Out N o longer eligible based on patient's age to complete this topic Meningococcal B Vaccine Aged Out No l onger eligible based on patient's age to complete this topic RSV Immunization Patients Under 20 months Aged Out No longer eligible based on patient's age to complete this topic Varicella Vaccines Aged Out No longer eligible based on patient's age to complete this topic Procedures Procedure Name Priority Date/Time Associated Diagnosis Comments EXTERNAL COLONOSCOPY REPORT Routine 05/13/2025 10:36 AM EDT from Last 3 Months Results * External Colonoscopy Report (05/13/2025 10:36 AM EDT) Anatomical Region Laterality Modality Endoscopy us Historical Provider GI~PROCEDURE ORDERABLES F inal Result from Last 3 Months Insurance MEDICARE Care Teams Shaper Set Up Operator Relationship Specialty Start Date End Date Richie Bateman PA [address] [address] PCP - General Internal Medicine 03/30/25
[2025-06-08 17:47] LABS: NTXCreaRU 67 mg/dL (20-275)
== END 2025-06-03 09:40 | disposition home or self-care (01) ==
LOC: HO.10HDLNP 09:39
PROVIDERS: Visit Provider Internal Medicine Endocrinology, Diabetes & Metabolism
DX: M81.0 Age-related osteoporosis without current pathological fracture (principal)
CPT/HCPCS: 82523

== ENCOUNTER 2025-07-12 09:51 | Outpatient (AMB) | payer MEDICARE, SELFPAY ==
--- NOTE | 2025-07-12 09:57 | A.OFFVIS_ITS ---
Vital Signs 07/12/25 09:58 Height 5 ft 3.43 in Weight 136 lb 10.986 oz BMI 23.9 BP 134/68 Blood Pressure Location Rt brachial Position Sitting Pulse 76 Pulse Source Pulse Oximeter Pulse Oximetry (%) 95 Oxygen Delivery Method Room Air Intake Visit Reasons: Osteoporosis f/u Intake Note: Patient presents today for Osteoporosis follow up. Assistant Cook Required: No Accompanied by: Self / Same As Patient Allergies No Known Allergies Allergy (Verified 07/12/25 10:03) Medication List - Last Reconciled 07/12/25 by Seb Muhammad MD amitriptyline 25 mg PO BEDTIME atorvastatin 20 mg PO DAILY calcium carbonate (Calcium 600) 600 mg PO DAILY cyclobenzaprine 10 mg PO TID dicyclomine 10 mg PO BID multivitamin 1 tab PO DAILY sumatriptan succinate 100 mg PO DAILY PRN HPI Comments Details: 75 YO F with is seen in consultation at the request of PCP for Osteoporosis.Saw Dr. Phillips at [facility] First diagnosed in 2019. Received treatment in the past with Reclast ,in 2019 . Tolerated treatment well without complication. No history of pathologic fracture or ONJ. Has several servings of dietary calcium per day in the form of cheese, brocoli . Not Takes Calcium supplement Takes ? IU of Vitamin D daily. Denies ever using PPI, anticoagulant, antiepileptic or glucocorticoid medication. 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 Nl menmses Denies history of Kidney stones: Denies family history of Osteoporosis or hip fracture. UTD on dental cleanings and sees dentist every 6 months. No planned upcoming dental work or extractions. DXA dated 10/21/18 :T-Score of -3.0 in L-S repeat DEXA bone density showed a T- score femoral neck of -2.9 Labs: Secondary workup was negative Recent DEXA showed continued osteoporosis with T-score of -2.9. This however stable from last bone density. Urine NTX is suppressed The patient is a 75-year-old female presenting with osteoporosis management. The patient's bone density has been stable but remains osteoporotic with a T score of -2.9 at the femoral neck, indicating a significant risk for fractures. Previous treatment with Reclast has maintained bone density but has not improved it. The patient has no history of myocardial infarction or stroke in the past year, which is relevant for considering treatment options like Evenity. [facility] Medical History (Updated 10/12/22 @ 16:28 by Seb Muhammad MD) Osteoporosis Surgical History Hx of appendectomy Family History Mother Alzheimer disease Father No problems noted. Social History Alcohol intake: current Alcohol type: hard liquor and other Patient Tobacco Use Status: Former Tobacco user Physical Exam Vital Signs: Last Vital Signs Pulse 76 07/12/25 09:58 BP 134/68 07/12/25 09:58 Pulse Ox 95 07/12/25 09:58 Oxygen Delivery Method Room Air 07/12/25 09:58 BMI result Body Mass Index 23.9 Assessment & Plan Assessment & Plan (1) Osteoporosis: Code(s): M81.0 - Age-related osteoporosis without current pathological fracture Category: Medical Plan: This is a 74-year-old white female diagnosed with osteoporosis. Secondary workup was negative. Received Reclast in the past with suppressed NTX. During NTX is still suppressed at bone density is stable low shows continued osteoporosis with T-score of-2.9 in the femoral neck The plan is to talk to the patient about pharmacologic therapy perhaps with anabolic therapy initially she has Evenity, Tymlos or Forteo to be proceeded by anti resorptive therapy 1. Osteoporosis The patient's bone density remains osteoporotic with a T score of -2.9, posing a significant fracture risk. Previous treatment with Reclast has maintained but not improved bone density. Consideration is given to a treat to target approach with medications like Evenity, Tymlos, or Forteo to increase bone density. Evenity is preferred due to its comprehensive effect on bone density, but insurance coverage and cost are concerns. Alternative options include Tymlos and Forteo, with Tymlos being more favorable due to better hip density improvement and lack of refrigeration requirement. I discussed with the patient the current status of her osteoporosis, emphasizing the stable yet osteoporotic bone density with a T score of -2.9, which poses a significant fracture risk. We explored treatment options, including Evenity, Tymlos, and Forteo, with a focus on the treat to target approach to increase bone density. I explained the benefits and limitations of each medication, noting that Evenity offers comprehensive bone density improvement but may face insurance hurdles. Tymlos was discussed as a favorable alternative due to its effect on hip density and convenience of not requiring refrigeration. The patient was informed about the potential insurance challenges and the possibility of using a medical benefit approach if necessary. - Follow up in 4 months to assess treatment progress and adjust the plan as needed. - Await insurance approval for Evenity and consider alternative options if necessary. - Consider the possibility of self-injection with Tymlos if Evenity is not approved. The patient had an opportunity to ask questions regarding treatment plan. The patient expressed understanding and agreement with the above treatment plan. Patient was informed and verbally consented to the use of an ambient scribe for clinic note documentation during this visit. Medications: New romosozumab-aqqg (Evenity) 210 mg (2.34 mL) subcut QMONTH 28.08 mL 11RF 12 months Coding Level of Care Code Est Pt Level 3 (98283) Diagnoses Osteoporosis M81.0
[2025-07-12 09:58] VITALS: BP 134/68; PULSE 76; O2SAT 95; BMI 23.9
--- OUTSIDE RECORDS SUMMARY | 2025-07-12 11:14 | XMS_ITS | Data Portability ---
Author Organization [facility], Main Office Address [address] [facility] [address] [place] [id number] Care Team Providers Care Program Services Assistant Name Role Phone OLI THAKKAR Imaging Assistant [phone] TITA MEDRANO Primary Care Provider RICHMOND STATON Architectural Engineering Teacher [facility] INSPECTOR [employer] Chief Station Engineer CARLOS RIVERA Research And Development Tester Assessment No assessment recorded. Plan of Treatment Reminders Order Date Submit Date Provider Last Modified By Organization Details Last Modified Time Details Appointments FOLLOW UP 30MIN 2025 10:30A M Tita Medrano PA-C Not available Not available Not available Lab CMP, serum or plasma 2024 025 NAHEED [facility] (Centralized Electronic Ordering - All Locations), Patient Can Go To The Location Of Their Choice, 06/30/2025 14:28:13 urinal ysis macro (dipst ick) panel, urine 2024 025 NAHEED [facility] (Centralized Electronic Ordering - All Locations), Patient Can Go To The Location Of Their Choice, 07/01/2025 14:06:30 cultur e, urine 2024 025 NAEHED [facility] (Centralized Electronic Ordering - All Locations), Patient Can Go To The Location Of Their Choice, 07/01/2025 22:05:43 urinal ysis, dipsti ck 2024 025 NAHEED In-Office Order, Internal Use Only DO Not Attach Compendium DO Not Attach Compendium, Do Not Delete/merge, [id number] 06/30/2025 15:20:40 TSH, ultra- sensit melany, serum 2024 025 NAHEED [facility] (Centralized Electronic Ordering - All Locations), Patient Can Go To The Location Of Their Choice, 06/30/2025 14:28:13 CBC w/ auto diff 2024 025 NAHEED [facility] (Centralized Electronic Ordering - All Locations), Patient Can Go To The Location Of Their Choice, 06/30/2025 14:28:14 HbA1c (hemog lobin A1c), blood 2024 025 NAHEED [facility] (Centralized Electronic Ordering - All Locations), Patient Can Go To The Location Of Their Choice, 03/10/2025 10:26:52 vitami n D, 25-hyd alvarez, total, serum 2024 025 [email or web address] [facility], [address] [facility], [place], [address], 06/08/2025 09:51:41 lipid panel, serum 2024 025 [email or web address] [facility] (Centralized Electronic Ordering - All Locations), Patient Can Go To The Location Of Their Choice, 05/04/2025 13:26:11 CMP, serum or plasma 2024 025 NAHEED [facility] (Centralized Electronic Ordering - All Locations), Patient Can Go To The Location Of Their Choice, 02/01/2025 11:07:27 CMP, serum or plasma 2023 024 NAHEED [facility] (Centralized Electronic Ordering - All Locations), Patient Can Go To The Location Of Their Choice, 04/12/2024 08:07:11 CBC w/ auto diff 2023 024 NAHEED [facility] (Centralized Electronic Ordering - All Locations), Patient Can Go To The Location Of Their Choice, 04/12/2024 08:07:10 HbA1c (hemog lobin A1c), blood 2022 023 [email or web address] s [facility] (Centralized Electronic Ordering - All Locations), Patient Can Go To The Location Of Their Choice, 10/02/2023 13:38:39 vitami n D, 25-hyd alvarez, total, serum 2022 023 [email or web address] s [facility] (Centralized Electronic Ordering - All Locations), Patient Can Go To The Location Of Their Choice, 10/02/2023 13:38:40 lipid panel, serum 2022 023 [email or web address] s [facility] (Centralized Electronic Ordering - All Locations), Patient Can Go To The Location Of Their Choice, 10/02/2023 13:38:39 CK (creat ine kinase ), total, serum 2022 023 NAHEED [facility] (Centralized Electronic Ordering - All Locations), Patient Can Go To The Location Of Their Choice, 02/25/2023 11:03:23 CMP, serum or plasma 2022 023 [email or web address] s [facility] (Centralized Electronic Ordering - All Locations), Patient Can Go To The Location Of Their Choice, 10/02/2023 13:38:39 Referral physic al medici ne and rehabi litati on referr al 2024 025 PO Gonzalez MD, [address] [place] [address], [address], 02/01/2025 12:08:25 gyneco logist referr elvin edward to schedu le 2023 024 [email or web address] Not available 08/29/2024 08:53:26 Procedures None record ed. Surgeries None record ed. Imaging XR, lumbar spine 2024 025 [facility], [address], [place], [address], 02/02/2025 09:28:16 Medication Orders amitri ptylin e 25 mg tablet 2023 024 [id number], [address] [place], [address], 03/02/2024 11:25:40 Patient Targets Encounter Date Encounter Id Patient Goals Patient Target Last Modified By Organization Details Last Modified Time 02/25/2023 [id number] Ongoing of LDL Direct <100 Not available Not available Not available Ongoing of LDL Direct yearly Not available Not available Not available 02/25/2023 [id number] Pt agrees to follow low fat diet, avoid saturated fats , decrease carbohydrate intake to 45 - 50 gm per meal , pt agrees to develop a regular pattern of exercise such as walking 30 minutes a day 3 times a week, Pt will keep a record of exercise and activity level Patient preferences and goals incorporated in plan and updated/modifie d as needed to reflect progress toward goal. pmadden Not available 02/25/2023 13:26:16 03/02/2024 [id number] Ongoing of LDL Direct <100 Not available Not available Not available Ongoing of LDL Direct yearly Not available Not available Not available 03/02/2024 [id number] Pt agrees to follow low fat diet, avoid saturated fats , decrease carbohydrate intake to 45 - 50 gm per meal , pt agrees to develop a regular pattern of exercise such as walking 30 minutes a day 3 times a week, Pt will keep a record of exercise and activity level Patient preferences and goals incorporated in plan and updated/modifie d as needed to reflect progress toward goal. pmadden Not available 03/02/2024 11:20:22 03/10/2025 [id number] Ongoing of LDL Direct <100 Not available Not available Not available Ongoing of LDL Direct yearly Not available Not available Not available 03/10/2025 [id number] Pt agrees to follow low fat diet, avoid saturated fats , decrease carbohydrate intake to 45 - 50 gm per meal , pt agrees to develop a regular pattern of exercise such as walking 30 minutes a day 3 times a week, Pt will keep a record of exercise and activity level Patient preferences and goals incorporated in plan and updated/modifie d as needed to reflect progress toward goal. pmadden Not available 03/10/2025 10:22:10 Patient Instructions Encounter Date Encounter Id Patient Instructions Last Modified By Organization Details Last Modified Time 02/25/2023 [id number] preventing falls : care instructions pmadden Not available 02/25/2023 11:03:14 medicare preventive services guide (female 74yrs and under) pmadden Not available 02/25/2023 11:03:15 Medications (OTC , herbal therapies, supplements) reviewed and reconciled with patient and or caregiver, including potential side effects, drug interactions, instructions, and the consequences of not taking medication. Reviewed potential barriers to medication adherence, such as side effects from medication or cost of medication. pmadden Not available 02/25/2023 10:25:57 03/02/2024 [id number] advance care planning: care instructions pmadden Not available 03/02/2024 11:20:26 preventing falls : care instructions pmadden Not available 03/02/2024 11:20:26 well visit, over 65: care instructions pmadden Not available 03/02/2024 11:20:26 medicare preventive services guide (female 74yrs and under) pmadden Not available 03/02/2024 11:20:26 Cervical Cancer Screening pmadden Not available 03/02/2024 11:20:26 encouraged pt to check outstanding labs as directed pmadden Not available 03/02/2024 10:48:18 Medications (OTC , herbal therapies, supplements) reviewed and reconciled with patient and or caregiver, including potential side effects, drug interactions, instructions, and the consequences of not taking medication. Reviewed potential barriers to medication adherence, such as side effects from medication or cost of medication. pmadden Not available 03/02/2024 10:47:51 02/01/2025 [id number] Patient will follow up and keep appointment as scheduled. pmadden Not available 02/01/2025 11:04:24 03/10/2025 [id number] advance care planning: care instructions pmadden Not available 03/10/2025 10:26:41 preventing falls : care instructions pmadden Not available 03/10/2025 10:26:41 well visit, over 65: care instructions pmadden Not available 03/10/2025 10:26:40 rec. get debrox kit - apply 5 drops in affected ear before bedtime, then place cotton ball - do so nightly x 1-3 nights, then use bulb syringe with warm water in the shower on the following day to irrigate the blockage out - do so monthly for prevention, avoid use of q-tips pmadden Not available 03/10/2025 10:35:02 Medications (OTC , herbal therapies, supplements) reviewed and reconciled with patient and or caregiver, including potential side effects, drug interactions, instructions, and the consequences of not taking medication. Reviewed potential barriers to medication adherence, such as side effects from medication or cost of medication. 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 Referral for Sc reening for malignant neoplasm of cervix Patient to schedule Referring Physician: Tita Medrano, Internal Medicine, Encounter Date: 03/02/2024 Physical Medicine And Rehabi litation Referral for Chronic low back pain Referring Physician: Tita Medrano, Internal Medicine, Encounter Date: 02/01/2025 Results Created Date Observation Date Name Description Value Unit Range Abnormal Flag Note LastModifiedBy Organization Detail LastModifiedTime 04/11/2004/12/2024 LIPID PANEL cholesterol, total 178 mg/dL 100-19 9 normal Not Available [facility] ([facility]) [address] [place], [address], 04/12/2024 08:07:05 04/11/20 24 04/12/2024 LIPID PANEL triglyceride s 112 mg/dL 0-149 normal Not Available [facility] ([facility]) [address] [place], [address], 04/12/2024 08:07:05 04/11/2004/12/2024 LIPID PANEL HDL cholesterol 62 mg/dL >39 normal Not Available [facility] ([facility]) [address] [place], [address], 04/12/2024 08:07:05 04/11/20 24 04/12/2024 LIPID PANEL VLDL cholesterol damon 20 mg/dL 5-40 Not Available [facility] ([facility]) [address] [place], [address], 04/12/2024 08:07:05 04/11/20 24 04/12/2024 LIPID PANEL LDL chol calc ([facility]) 96 mg/dL 0-99 Not Available [facility]) [address] [facility], [place], [address], 04/12/2024 08:07:05 04/11/20 24 04/12/2024 LIPID PANEL LDL calc comment: MUTUEL DEPARTMENT MANAGER Not Available [facility] ([facility]) [address] [facility], [place], [address], 04/12/2024 08:07:05 04/11/20 24 04/12/2024 CK, TOTAL creatine kinase,total 83 U/L 32-182 normal Not Available [facility] ([facility]) [address] [facility], [place], [address], 04/12/2024 08:07:06 04/11/20 24 04/12/2024 HEMOG LOBIN A1C hemoglobin A1C 5.4 % 4.8-5. 6 normal Predi abete s: 5.7 - 6.4 Diabe mary: >6.4 Glyce harley contr ol for adult s with diabe mary: <7.0 Not Available [facility] ([facility]) [address] [facility], [place], [address], 04/12/2024 08:07:06 04/11/20 24 04/12/2024 VITAM IN D, 25-HY DROXY vitamin D, 25-hydroxy 54.5 NG/mL 30.0-1 00.0 Vitam in D defic iency has been defin ed by the Insti tute of Medic ine and an Endoc rine Socie ty pract ice guide line as a level of serum 25-OH vitam in D less than 20 ng/mL (1,2) . The Endoc rine Socie ty went on to furth er defin e vitam in D insuf ficie ncy as a level betwe en 21 and 29 ng/mL (2). 1. IOM (Inst itute of Medic ine). 2010. Dieta ry refer ence intak es for calci um and D. Lizzeth sierra [place]: [facility] Press . 2. Mushtaq pelayo MF, Zeeshan saleh [place], [place] off-F mana i VAUGHAN, et al. Evalu ation , treat ment, and preve ntion of vitam in D defic iency : an Endoc rine Socie ty clini damno pract ice guide line. JCEM. 2010; 96(7) :1911 -30. Not Available [facility] ([facility]) [address] [facility], [place], [address], 04/12/2024 08:07:07 04/11/20 24 04/12/2024 CBC WITH DIFFE RENTI AL/PL ATELE T WBC 4.7 x10e3 /uL 3.4-10 .8 normal Not Available [facility] ([facility]) [address] [facility], [place], [address], 04/12/2024 08:07:10 04/11/20 24 04/12/2024 CBC WITH DIFFE RENTI AL/PL ATELE T RBC 4.67 x10e6 /uL 3.77-5 .28 normal Not Available [facility] ([facility]) [address] [facility], [place], [address], 04/12/2024 08:07:10 04/11/20 24 04/12/2024 CBC WITH DIFFE RENTI AL/PL ATELE T hemoglobin 13.4 g/dL 11.1-1 5.9 normal Not Available [facility] ([facility]) [address] [facility], [place], [address], 04/12/2024 08:07:10 04/11/20 24 04/12/2024 CBC WITH DIFFE RENTI AL/PL ATELE T hematocrit 42.3 % 34.0-4 6.6 normal Not Available [facility] ([facility]) [address] [place], [address], 04/12/2024 08:07:10 04/11/20 24 04/12/2024 CBC WITH DIFFE RENTI AL/PL ATELE T MCV 91 fL 79-97 normal Not Available [facility] ([facility]) [address] [facility], [place], [address], 04/12/2024 08:07:10 04/11/20 24 04/12/2024 CBC WITH DIFFE RENTI AL/PL ATELE T MCH 28.7 pg 26.6-3 3.0 normal Not Available [facility] ([facility]) [address] [facility], [place], [address], 04/12/2024 08:07:10 04/11/20 24 04/12/2024 CBC WITH DIFFE RENTI AL/PL ATELE T MCHC 31.7 g/dL 31.5-3 5.7 normal Not Available [facility] ([facility]) [address] [facility], [place], [address], 04/12/2024 08:07:10 04/11/20 24 04/12/2024 CBC WITH DIFFE RENTI AL/PL ATELE T RDW 13.6 % 11.7-1 5.4 Not Available [facility] ([facility]) [address] [facility], [place], [address], 04/12/2024 08:07:10 04/11/20 24 04/12/2024 CBC WITH DIFFE RENTI AL/PL ATELE T platelets 275 x10e3 /uL 150-45 0 normal Not Available [facility] ([facility]) [address] [facility], [place], [address], 04/12/2024 08:07:10 04/11/20 24 04/12/2024 CBC WITH DIFFE RENTI AL/PL ATELE T neutrophils 61 % not estab. normal Not Available [facility] ([facility]) [address] [place], [address], 04/12/2024 08:07:10 04/11/20 24 04/12/2024 CBC WITH DIFFE RENTI AL/PL ATELE T lymphs 27 % not estab. normal Not Available [facility] ([facility]) [address] [place], [address], 04/12/2024 08:07:10 04/11/20 24 04/12/2024 CBC WITH DIFFE RENTI AL/PL ATELE T monocytes 9 % not estab. normal Not Available [facility] ([facility]) [address] [facility], [place], [address], 04/12/2024 08:07:10 04/11/20 24 04/12/2024 CBC WITH DIFFE RENTI AL/PL ATELE T eos 2 % not estab. normal Not Available [facility] ([facility]) [address] [place], [address], 04/12/2024 08:07:10 04/11/20 24 04/12/2024 CBC WITH DIFFE RENTI AL/PL ATELE T basos 1 % not estab. normal Not Available [facility] ([facility]) [address] [place], [address], 04/12/2024 08:07:10 04/11/20 24 04/12/2024 CBC WITH DIFFE RENTI AL/PL ATELE T immature cells MUTUEL DEPARTMENT MANAGER Not Available [facility] ([facility]) [address] [place], [address], 04/12/2024 08:07:10 04/11/20 24 04/12/2024 CBC WITH DIFFE RENTI AL/PL ATELE T neutrophils (absolute) 2.9 x10e3 /uL 1.4-7. 0 normal Not Available [facility] ([facility]) [address] [place], [address], 04/12/2024 08:07:10 04/11/20 24 04/12/2024 CBC WITH DIFFE RENTI AL/PL ATELE T lymphs (absolute) 1.3 x10e3 /uL 0.7-3. 1 normal Not Available [facility] ([facility]) [address] [place], [address], 04/12/2024 08:07:10 04/11/20 24 04/12/2024 CBC WITH DIFFE RENTI AL/PL ATELE T monocytes(ab solute) 0.4 x10e3 /uL 0.1-0. 9 normal Not Available [facility] ([facility]) [address] [facility], [place], [address], 04/12/2024 08:07:10 04/11/20 24 04/12/2024 CBC WITH DIFFE RENTI AL/PL ATELE T eos (absolute) 0.1 x10e3 /uL 0.0-0. 4 normal Not Available [facility] ([facility]) [address] [facility], [place], [address], 04/12/2024 08:07:10 04/11/20 24 04/12/2024 CBC WITH DIFFE RENTI AL/PL ATELE T baso (absolute) 0.0 x10e3 /uL 0.0-0. 2 normal Not Available [facility] ([facility]) [address] [facility], [place], [address], 04/12/2024 08:07:10 04/11/20 24 04/12/2024 CBC WITH DIFFE RENTI AL/PL ATELE T immature granulocytes 0 % not estab. Not Available [facility] ([facility]) [address] [facility], [place], [address], 04/12/2024 08:07:10 04/11/20 24 04/12/2024 CBC WITH DIFFE RENTI AL/PL ATELE T immature grans (abs) 0.0 x10e3 /uL 0.0-0. 1 Not Available [facility] ([facility]) [address] [place], [address], 04/12/2024 08:07:10 04/11/20 24 04/12/2024 CBC WITH DIFFE RENTI AL/PL ATELE T NRBC MUTUEL DEPARTMENT MANAGER Not Available [facility] ([facility]) [address] [facility], [place], [address], 04/12/2024 08:07:10 04/11/20 24 04/12/2024 CBC WITH DIFFE JOEL AL/JUAN Edward hematology comments: MUTUEL DEPARTMENT MANAGER Not Available [facility] ([facility]) [address] [facility], [place], [address], 04/12/2024 08:07:10 04/11/20 24 04/12/2024 COMP. METAB OLIC PANEL (14) glucose 85 mg/dL 70-99 normal Not Available [facility] ([facility]) [address] [facility], [place], [address], 04/12/2024 08:07:11 04/11/20 24 04/12/2024 COMP. METAB OLIC PANEL (14) BUN 8 mg/dL 8-27 normal Not Available [facility] ([facility]) [address] [facility], [place], [address], 04/12/2024 08:07:11 04/11/20 24 04/12/2024 COMP. METAB OLIC PANEL (14) creatinine 0.83 mg/dL 0.57-1 .00 normal Not Available [facility] ([facility]) [address] [facility], [place], [address], 04/12/2024 08:07:11 04/11/20 24 04/12/2024 COMP. METAB OLIC PANEL (14) eGFR 74 mL/mi n/1.7 3 >59 normal Not Available [facility] ([facility]) [address] [facility], [place], [address], 04/12/2024 08:07:11 04/11/20 24 04/12/2024 COMP. METAB OLIC PANEL (14) BUN/creatini ne ratio 10 12-28 below low normal Not Available [facility] ([facility]) [address] [facility], [place], [address], 04/12/2024 08:07:11 04/11/20 24 04/12/2024 COMP. METAB OLIC PANEL (14) sodium 142 mmol/ L 134-14 4 normal Not Available [facility] ([facility]) [address] [facility] [place], [address], 04/12/2024 08:07:11 04/11/20 24 04/12/2024 COMP. METAB OLIC PANEL (14) potassium 4.4 mmol/ L 3.5-5. 2 normal Not Available [facility] ([facility]) [address] [facility], [place], [address], 04/12/2024 08:07:11 04/11/20 24 04/12/2024 COMP. METAB OLIC PANEL (14) chloride 104 mmol/ L 96-106 normal Not Available [facility] ([facility]) [address] [facility], [place], [address], 04/12/2024 08:07:11 04/11/20 24 04/12/2024 COMP. METAB OLIC PANEL (14) carbon dioxide, total 26 mmol/ L 20-29 normal Not Available [facility] ([facility]) [address] [facility] [place], [address], 04/12/2024 08:07:11 04/11/20 24 04/12/2024 COMP. METAB OLIC PANEL (14) calcium 9.3 mg/dL 8.7-10 .3 normal Not Available [facility] ([facility]) [address] [facility] [place], [address], 04/12/2024 08:07:11 04/11/20 24 04/12/2024 COMP. METAB OLIC PANEL (14) protein, total 6.3 g/dL 6.0-8. 5 normal Not Available [facility] ([facility]) [address] [facility] [place], [address], 04/12/2024 08:07:11 04/11/20 24 04/12/2024 COMP. METAB OLIC PANEL (14) albumin 4.4 g/dL 3.8-4. 8 normal Not Available [facility] ([facility]) [address] [place], [address], 04/12/2024 08:07:11 04/11/20 24 04/12/2024 COMP. METAB OLIC PANEL (14) globulin, total 1.9 g/dL 1.5-4. 5 Not Available [facility] ([facility]) [address] [facility] [place], [address], 04/12/2024 08:07:11 04/11/20 24 04/12/2024 COMP. METAB OLIC PANEL (14) bilirubin, total 0.2 mg/dL 0.0-1. 2 normal Not Available [facility] ([facility]) [address] [place], [address], 04/12/2024 08:07:11 04/11/20 24 04/12/2024 COMP. METAB OLIC PANEL (14) alkaline phosphatase 70 IU/L 44-121 normal Not Available [facility] ([facility]) [address] [place], [address], 04/12/2024 08:07:11 04/11/20 24 04/12/2024 COMP. METAB OLIC PANEL (14) AST (SGOT) 21 IU/L 0-40 normal Not Available [facility] ([facility]) [address] [facility] [place], [address], 04/12/2024 08:07:11 04/11/20 24 04/12/2024 COMP. METAB OLIC PANEL (14) ALT (SGPT) 22 IU/L 0-32 normal Not Available [facility] ([facility]) [address] [facility] [place], [address], 04/12/2024 08:07:11 06/30/20 25 07/01/2025 URINA LYSIS , ROUTI NE specific gravity 1.007 1.005- 1.030 normal Not Available [facility] ([facility]) [address] [facility], [place], [address], 07/01/2025 14:06:30 06/30/2007/01/2025 URINA LYSIS , ROUTI NE pH 7.0 5.0-7. 5 normal Not Available [facility] ([facility]) [address] [facility], [place], [address], 07/01/2025 14:06:30 06/30/2007/01/2025 URINA LYSIS , ROUTI NE urine-color Yellow yellow Not Available [facility] ([facility]) [address] [facility], [place], [address], 07/01/2025 14:06:30 06/30/20 25 07/01/2025 URINA LYSIS , ROUTI NE appearance Clear clear Not Available [facility] ([facility]) [address] [facility], [place], [address], 07/01/2025 14:06:30 06/30/2007/01/2025 URINA LYSIS , ROUTI NE WBC esterase 1+ negati ve abnormal Not Available [facility] ([facility]) [address] [facility], [place], [address], 07/01/2025 14:06:30 06/30/20 25 07/01/2025 URINA LYSIS , ROUTI NE protein Negati ve negati ve/tra ce Not Available [facility] ([facility]) [address] [place], [address], 07/01/2025 14:06:30 06/30/20 25 07/01/2025 URINA LYSIS , ROUTI NE glucose Negati ve negati ve Not Available [facility] ([facility]) [address] [place], [address], 07/01/2025 14:06:30 06/30/20 25 07/01/2025 URINA LYSIS , ROUTI NE ketones Negati ve negati ve Not Available [facility] ([facility]) [address] [place], [address], 07/01/2025 14:06:30 06/30/20 25 07/01/2025 URINA LYSIS , ROUTI NE occult blood Negati ve negati ve Not Available [facility] ([facility]) [address] [facility], [place], [address], 07/01/2025 14:06:30 06/30/2007/01/2025 URINA LYSIS , ROUTI NE bilirubin Negati ve negati ve Not Available [facility] ([facility]) [address] [place], [address], 07/01/2025 14:06:30 06/30/20 25 07/01/2025 URINA LYSIS , ROUTI NE urobilinogen ,semi-qn 0.2 mg/dL 0.2-1. 0 normal Not Available [facility] ([facility]) [address] [place], [address], 07/01/2025 14:06:30 06/30/20 25 07/01/2025 URINA LYSIS , ROUTI NE nitrite, urine Negati ve negati ve Not Available [facility] ([facility]) [address] [place], [address], 07/01/2025 14:06:30 06/30/20 25 07/01/2025 URINA LYSIS , ROUTI NE microscopic examination See below: Micro scopi c was indic ated and was perfo rmed. Not Available [facility] ([facility]) [address] [place], [address], 07/01/2025 14:06:30 06/30/20 25 07/01/2025 URINA LYSIS , ROUTI NE WBC None seen /hpf 0 - 5 Not Available [facility] ([facility]) [address] [place], [address], 07/01/2025 14:06:30 06/30/20 25 07/01/2025 URINA LYSIS , ROUTI NE RBC 0-2 /hpf 0 - 2 Not Available [facility] ([facility] Lab) [address] [facility], [place], [address], 07/01/2025 14:06:30 06/30/20 25 07/01/2025 URINA LYSIS , ROUTI NE epithelial cells (non renal) None seen /hpf 0 - 10 Not Available [facility] ([facility]) [address] [facility], [place], [address], 07/01/2025 14:06:30 06/30/2007/01/2025 URINA LYSIS , ROUTI NE epithelial cells (renal) MUTUEL DEPARTMENT MANAGER Not Available [facility] ([facility]) [address] [facility], [place], [address], 07/01/2025 14:06:30 06/30/20 25 07/01/2025 URINA LYSIS , ROUTI NE casts None seen /lpf none seen Not Available [facility] ([facility]) [address] [facility], [place], [address], 07/01/2025 14:06:30 06/30/20 25 07/01/2025 URINA LYSIS , ROUTI NE cast type MUTUEL DEPARTMENT MANAGER Not Available [facility] ([facility]) [address] [facility], [place], [address], 07/01/2025 14:06:30 06/30/2007/01/2025 URINA LYSIS , ROUTI NE crystals MUTUEL DEPARTMENT MANAGER Not Available [facility] ([facility]) [address] [facility], [place], [address], 07/01/2025 14:06:30 06/30/20 25 07/01/2025 URINA LYSIS , ROUTI NE crystal type MUTUEL DEPARTMENT MANAGER Not Available [facility] ([facility]) [address] [facility], [place], [address], 07/01/2025 14:06:30 06/30/2007/01/2025 URINA LYSIS , ROUTI NE mucus threads MUTUEL DEPARTMENT MANAGER Not Available [facility] ([facility]) [address] [place], [address], 07/01/2025 14:06:30 06/30/2007/01/2025 URINA LYSIS , ROUTI NE bacteria None seen none seen/f ew Not Available [facility] ([facility]) [address] [facility], [place], [address], 07/01/2025 14:06:30 06/30/2007/01/2025 URINA LYSIS , ROUTI NE yeast MUTUEL DEPARTMENT MANAGER Not Available [facility] ([facility]) [address] [place], [address], 07/01/2025 14:06:30 06/30/2007/01/2025 URINA LYSIS , ROUTI NE trichomonas MUTUEL DEPARTMENT MANAGER Not Available [facility] ([facility]) [address] [place], [address], 07/01/2025 14:06:30 06/30/2007/01/2025 URINA LYSIS , ROUTI NE comment MUTUEL DEPARTMENT MANAGER Not Available [facility] ([facility]) [address] [place], [address], 07/01/2025 14:06:30 06/30/2007/01/2025 URINE CULTU RE, ROUTI NE urine culture, routine Final report Not Available [facility] ([facility]) [address] [place], [address], 07/01/2025 22:05:42 06/30/2007/01/2025 URINE CULTU RE, ROUTI NE result 1 COMMEN T Mixed uroge nital el 25,00 0-50, 000 colon y formi ng units per mL Not Available [facility] ([facility]) [address] [place], [address], 07/01/2025 22:05:42 06/30/2006/30/2025 urina lysis , dipst ick Leukocytes Negati ve Not Available In-Office Order Internal Use Only DO Not Attach Compendium DO Not Attach Compendium, Do Not Delete/merge, 06/30/2025 13:38:35 06/30/2006/30/2025 urina lysis , dipst ick Nitritie negati ve Not Available In-Office Order Internal Use Only DO Not Attach Compendium DO Not Attach Compendium, Do Not Delete/merge, 06/30/2025 13:38:35 06/30/2006/30/2025 urina lysis , dipst ick Urobilinogen .2 Not Available In-Of fice Order Internal Use Only DO Not Attach Compendium DO Not Attach Compendium, Do Not Delete/merge, 06/30/2025 13:38:35 06/30/2006/30/2025 urina lysis , dipst ick Protein Negati ve Not Available In-Office Order Internal Use Only DO Not Attach Compendium DO Not Attach Compendium, Do Not Delete/merge, 06/30/2025 13:38:35 06/30/2006/30/2025 urina lysis , dipst ick pH 7.0 Not Available In-Office Order Internal Use Only DO Not Attach Compendium DO Not Attach Compendium, Do Not Delete/merge, 06/30/2025 13:38:35 06/30/2006/30/2025 urina lysis , dipst ick Blood Non-He molyze d: Trace Not Available In-Office Order Internal Use Only DO Not Attach Compendium DO Not Attach Compendium, Do Not Delete/merge, 06/30/2025 13:38:35 06/30/2006/30/2025 urina lysis , dipst ick Specific Hinckley 1.010 Not Available In-Off ice Order Internal Use Only DO Not Attach Compendium DO Not Attach Compendium, Do Not Delete/merge, 06/30/2025 13:38:35 06/30/20 25 06/30/2025 urina lysis , dipst ick Ketone Negati ve Not Available In-Office Order Internal Use Only DO Not Attach Compendium DO Not Attach Compendium, Do Not Delete/merge, [id number] 06/30/2025 13:38:35 06/30/20 25 06/30/2025 urina lysis , dipst ick Bilirubin Negati ve Not Available In-Office Order Internal Use Only DO Not Attach Compendium DO Not Attach Compendium, Do Not Delete/merge, [facility] 06/30/2025 13:38:35 06/30/20 25 06/30/2025 urina lysis , dipst ick Glucose Negati ve Not Available In-Office Order Internal Use Only DO Not Attach Compendium DO Not Attach Compendium, Do Not Delete/merge, [facility] 06/30/2025 13:38:35 06/30/20 25 06/30/2025 urina lysis , dipst ick Appearance Clear Not Available In-Offi ce Order Internal Use Only DO Not Attach Compendium DO Not Attach Compendium, Do Not Delete/merge, [facility] 06/30/2025 13:38:35 06/30/2006/30/2025 urina lysis , dipst ick Color Yellow Not Available In-Office Order Internal Use Only DO Not Attach Compendium DO Not Attach Compendium, Do Not Delete/merge, [facility] 06/30/2025 13:38:35 02/02/20 23 01/31/2023 DEXA, axial skele ton No observ ation record ed. [facility] [address], [place], [address], 02/25/2023 10:25:38 02/05/20 23 01/31/2023 DEXA, axial skele ton No observ ation record ed. [facility] [address], [place], [address], 02/25/2023 10:25:38 02/27/20 23 02/26/2023 MAMMO , scree desirae, digit al, bilat eral PROCED URE: MM Digita l Mammo Screen ing INDICA TION: Screen ing for breast cancer . No known palpab le abnorm alitie s. COMPAR MP: Prior mammog estrella most recent ly dated 01/03/20. TECHNI QUE: Full-f ield digita l CC and MLO 3D tomosy nthesi s images of both breast s were acquir ed. Comput er-aid ed detect ion (CAD) was utiliz ed in the interp retati on of this study. DENSIT Y: The breast tissue contai ns scatte red areas of fibrog landul ar densit y. FINDIN GS: No suspic ious masses , suspic ious microc alcifi cation s, or areas of mishel ectura l distor tion are seen in either breast to sugges t malign emely. IMPRES TRU: No mammog raphic eviden ce of malign emely. RECOMM ENDATI ON: Annual mammog raphic screen ing BI-RAD S: 1 (Negat melany) Lay letter mailed to donal edward WSN: [id number] Orderi ng Physic linda: Juvencio Medrano Dictat ed By: Izzy Soriano MD Dictat ed Date/T merissa: 11:08 am Review ed By: Izzy Soriano MD Signed By: Izzy Soriano MD Signed Date/T merissa: 11:08 am Transc ribed By: CSB Transc riptio n Date/T merissa: 11:03 am Birads : Donal t Class: Outpat ient [facility] (Outpt Imaging) [address], [place], [address], 03/02/2024 10:47:26 02/27/20 23 02/21/2023 MAMMO jovan digit al, bilat eral No observ ation record ed. [facility] [address] , [place], [address], 03/02/2024 10:47:26 03/10/20 24 03/10/2024 MAMMO , scree desirae, digit al, bilat eral PROCED URE: MM Digita l Mammo Screen ing INDICA TION: Screen ing for breast cancer . No known palpab le abnorm alitie s. COMPAR MP: Priors dating back to 021 TECHNI QUE: Full-f ield digita l CC and MLO 3D tomosy nthesi s images of both breast s were acquir ed. Comput er-aid ed detect ion (CAD) was utiliz ed in the interp retati on of this study. DENSIT Y: There are scatte red areas of fibrog landul ar densit y. FINDIN GS: No suspic ious masses , suspic ious microc alcifi cation s, or areas of mishel ectura l distor tion are seen in either breast to sugges t malign emely. IMPRES TRU: No mammog raphic eviden ce of malign emely. RECOMM ENDATI ON: Annual mammog raphic screen ing BI-RAD S: 1 (Negat melany) Lay letter mailed to donal edward WSN: [id number] Orderi ng Physic linda: Juvencio Medrano Dictat ed By: Abdifatah Davenport MD Dictat ed Date/T merissa: 1:03 pm Review ed By: Abdifatah Davenport MD Signed By: Abdifatah Davenport MD Signed Date/T merissa: 1:03 pm Transc ribed By: CSB Transc riptio n Date/T merissa: 12:59 pm Birads : Donal t Class: Outpat ient [facility] (Outpt Imaging) [address], [place], [address], 02/01/2025 10:57:20 03/10/20 24 03/10/2024 MAMMO , scree desirae, digit al, bilat eral No observ ation record ed. [facility] [address], [place], [address], 02/01/2025 10:57:20 02/03/20 25 02/01/2025 XR, lumba r spine Lumbar Spine 2 or 3 Views Reason : low back pain COMPAR MP: No prior plain films. FINDIN GS: No bone lesion s or fractu res. There is lumbar curvat ure convex left with varyin g degree s of disc space narrow ing from L1-L2 throug h L4-L5, most pronou nced at L2-L3. There is mild scatte red margin al osteop hyte format ion. There is facet arthro hyacinth L4-L5 and L5-S1 predom inantl y right- sided. Normal alignm ent. No spondy lolysi s or spondy lolist hesis. Modera te stool retent ion. There are multip le surgic al clips in the right side of the pelvis . IMPRES TRU: Levosc oliosi s with degene rative change s, most advanc ed at L2-L3. No acute findin gs. WSN: [id number] Orderi ng Physic linda: Juvencio Medrano Dictat ed By: Helena mata MD, Leia Sarmiento Dictat ed Date/T merissa: 9:25 am Review ed By: Helena mata MD, Leia Sarmiento Signed By: Leia Vo MD Signed Date/T merissa: 9:25 am Transc ribed By: BARB Transc ribed Date/T merissa: 9:19 am Patien t Class: Outpat ient [facility] (Outpt Imaging) [address] , [place], [address], 03/10/2025 10:12:50 03/13/20 25 03/13/2025 MAMMO , scree desirae, digit al, bilat eral No observ ation record ed. [email or web address] [facility] [address] , [place], [address], 03/17/2025 14:15:48 03/13/20 25 03/12/2025 MAMMO , scree desirae, digit al, bilat eral PROCED URE: MM Digita l Mammo Screen ing INDICA TION: Screen ing. No known palpab le abnorm alitie s. COMPAR MP: Dating back to 5/3/20 22 TECHNI QUE: Full-f ield digita l CC and MLO 3D tomosy nthesi s images of both breast s were acquir ed. Comput er-aid ed detect ion (CAD) was utiliz ed in the interp retati on of this study. DENSIT Y: The breast s are hetero geneou sly dense, which may obscur e small masses . FINDIN GS: No suspic ious masses , suspic ious microc alcifi cation s, or areas of mishel ectura l distor tion are seen in either breast to sugges t malign emely. IMPRES TRU: No mammog raphic eviden ce of malign emely. RECOMM ENDATI ON: Annual mammog raphic screen ing BI-RAD S: 1 (Negat melany) Lay letter mailed to donal edward WSN: [id number] Orderi ng Physic linda: Juvencio Medrano Dictat ed By: Thai Dos Santos MD Dictat ed Date/T merissa: 10:10 pm Review ed By: Thai Dos Santos MD Signed By: Thai Dos Santos MD Signed Date/T merissa: 10:10 pm Transc ribed By: CSSandra Transc riptio n Date/T merissa: 10:10 pm Birads : Donal edward Class: Outpat ient [email or web address] [facility] (Outpt Imaging) [address] [place] [address], [address], 03/15/2025 11:12:54 Result Notes Documentation Provider Name and Address Organization Details Recorded Time Mammo, Screening, Digital, Bilateral : PROCEDURE: MM Digital Mammo Screening INDICATION: Screening for breast cancer. No known palpable abnormalities. COMPARISON: Prior mammograms most recently dated 01/02/2022. TECHNIQUE: Full-field digital CC and MLO 3D tomosynthesis images of both breasts were acquired. Computer-aided detection (CAD) was utilized in the interpretation of this study. DENSITY: The breast tissue contains scattered areas of fibroglandular density. FINDINGS: No suspicious masses, suspicious microcalcifications, or areas of architectural distortion are seen in either breast to suggest malignancy. IMPRESSION: No mammographic evidence of malignancy. RECOMMENDATION: Annual mammographic screening BI-RADS: 1 (Negative) Lay letter mailed to patient WSN: [id number] Ordering Physician: Tita Medrano Dictated By: Mayuri Soriano MD Dictated Date/Time: 02/26/23 11:08 am Reviewed By: Mayuri Soriano MD Signed By: Mayuri Soriano MD Signed Date/Time: 02/26/23 11:08 am Transcribed By: BARB Security Compliance Specialist Date/Time: 02/26/23 11:03 am Birads: Patient Class: Outpatient Tita Medrano PA-C [address] [facility] [address] [place] [address], [address], [facility] [place] 03/02/2024 10:47:26 Mammo, Screening, Digital, Bilateral : PROCEDURE: MM Digital Mammo Screening INDICATION: Screening for breast cancer. No known palpable abnormalities. COMPARISON: Priors dating back to 12/28/2020 TECHNIQUE: Full-field digital CC and MLO 3D tomosynthesis images of both breasts were acquired. Computer-aided detection (CAD) was utilized in the interpretation of this study. DENSITY: There are scattered areas of fibroglandular density. FINDINGS: No suspicious masses, suspicious microcalcifications, or areas of architectural distortion are seen in either breast to suggest malignancy. IMPRESSION: No mammographic evidence of malignancy. RECOMMENDATION: Annual mammographic screening BI-RADS: 1 (Negative) Lay letter mailed to patient WSN: [id number] Ordering Physician: Tita Medrano Dictated By: Maylin Davenport MD Dictated Date/Time: 03/10/24 1:03 pm Reviewed By: Maylin Davenport MD Signed By: Maylin Davenport MD Signed Date/Time: 03/10/24 1:03 pm Transcribed By: BARB Security Compliance Specialist Date/Time: 03/10/24 12:59 pm Birads: Patient Class: Outpatient Tita Medrano PA-C [address] [facility], [place], [address], [facility] 02/01/2025 10:57:20 Xr, Lumbar Spine : Lumbar Spine 2 or 3 Views Reason: low back pain COMPARISON: No prior plain films. FINDINGS: No bone lesions or fractures. There is lumbar curvature convex left with varying degrees of disc space narrowing from L1-L2 through L4-L5, most pronounced at L2-L3. There is mild scattered marginal osteophyte formation. There is facet arthropathy L4-L5 and L5-S1 predominantly right-sided. Normal alignment. No spondylolysis or spondylolisthesis. Moderate stool retention. There are multiple surgical clips in the right side of the pelvis. IMPRESSION: Levoscoliosis with degenerative changes, most advanced at L2-L3. No acute findings. WSN: [id number] Ordering Physician: Tita Medrano Dictated By: Koko Cornelius MD Dictated Date/Time: 02/02/25 9:25 am Reviewed By: Koko Cornelius MD Signed By: Koko Cornelius MD Signed Date/Time: 02/02/25 9:25 am Transcribed By: BARB Transcribed Date/Time: 02/02/25 9:19 am Patient Class: Outpatient Tita Medrano [place] [id number] [address], [phone] 03/10/2025 10:12:50 Mammo, Screening, Digital, Bilateral : PROCEDURE: MM Digital Mammo Screening INDICATION: Screening. No known palpable abnormalities. COMPARISON: Dating back to 01/02/2022 TECHNIQUE: Full-field digital CC and MLO 3D tomosynthesis images of both breasts were acquired. Computer-aided detection (CAD) was utilized in the interpretation of this study. DENSITY: The breasts are heterogeneously dense, which may obscure small masses. FINDINGS: No suspicious masses, suspicious microcalcifications, or areas of architectural distortion are seen in either breast to suggest malignancy. IMPRESSION: No mammographic evidence of malignancy. RECOMMENDATION: Annual mammographic screening BI-RADS: 1 (Negative) Lay letter mailed to patient WSN: [id number] Ordering Physician: Tita Medrano Dictated By: Thai Dos Santos MD Dictated Date/Time: 03/13/25 10:10 pm Reviewed By: Thai Dos Santos MD Signed By: Thai Dos Santos MD Signed Date/Time: 03/13/25 10:10 pm Transcribed By: BARB Security Compliance Specialist Date/Time: 03/13/25 10:10 pm Birads: [facility] 11:12:54 Problems Name Problem SNOMED Code Status Onset Date Resolution Date Notes Provider Name and Address Organization Details Recorded Time Dysuria 20302382 Completed 10/01/2016 Divina Duncan [place] her[place], [facility] 7 10:06:00 Ex-smoke r 1536322 Active Not Available [facility] 0 02:53:58 Well female adult [id number] Completed 08/05/2020 [place], [facility] 0 11:13:37 Administ ration of bacteria l and viral vaccine Completed 200903/16/2014 RECORDED 12/30/19 10 3:14PM BY NYLA WONG MD, OFFICE VISIT [facility] 6 09:33:58 Administ ration of bacteria l and viral vaccine Completed 200904/12/2014 RECORDED 12/30/19 10 3:14PM BY NYLA WONG MD, OFFICE VISIT [facility] 6 09:33:58 Generali zed abdomina l pain 964792440 Completed 201103/16/2014 RECORDED 06/26/20 12 11:23AM BY JONNY HIRSCH MA, ANNOTATI ON/ADDEN DUM [facility] 6 09:33:58 Screenin g for malignan t neoplasm of breast Completed 201103/16/2014 RECORDED 06/26/20 12 11:23AM BY JONNY HIRSCH MA, ANNOTATI ON/ADDEN DUM [facility] 6 09:33:58 Screenin g for malignan t neoplasm of cervix Completed 201103/16/2014 RECORDED 06/26/20 12 11:23AM BY JONNY HIRSCH MA, ANNOTATI ON/ADDEN DUM Nyla Wyatt ro david, [facility] 6 09:33:58 Influenz a vaccine needed [id number] 06 Completed 201103/16/2014 RECORDED 06/26/20 12 11:28AM BY JONNY HIRSCH MA, OFFICE VISIT Divina Duncan MA null, [facility] 7 10:05:40 Shoulder joint pain 585522416 Completed 201103/16/2014 RECORDED 06/26/20 12 11:23AM BY JONNY HIRSCH MA, ANNOTATI ON/ADDEN DUM Nyla D'Alessand ro null, [facility] 6 09:33:58 Screenin g for malignan t neoplasm of colon Completed 201103/16/2014 RECORDED 06/26/20 12 11:23AM BY JONNY HIRSCH MA, ANNOTATI ON/ADDEN DUM Nyla D'Alessand ro null, [facility] 6 09:33:58 Urgent desire to urinate 45502823 Completed 201103/16/2014 RECORDED 06/26/20 12 11:23AM BY JONNY HIRSCH MA, ANNOTATI ON/ADDEN DUM Nyla D'Alessand ro null, [facility] 6 09:33:58 Generali zed abdomina l pain 004473052 Completed 201104/12/2014 RECORDED 06/26/20 12 11:23AM BY JONNY HIRSCH MA, ANNOTATI ON/ADDEN DUM Nyla D'Alessand ro null, [facility] 6 09:33:58 Screenin g for malignan t neoplasm of breast Completed 201104/12/2014 RECORDED 06/26/20 12 11:23AM BY JONNY HIRSCH MA, ANNOTATI ON/ADDEN DUM Nyla D'Alessand ro null, [facility] 6 09:33:58 Screenin g for malignan t neoplasm of cervix Completed 201104/12/2014 RECORDED 06/26/20 12 11:23AM BY JONNY HIRSCH MA, ANNOTATI ON/ADDEN DUM Nyla Julianna'Alessand ro null, [facility] 6 09:33:58 Shoulder joint pain 901047762 Completed 201104/12/2014 RECORDED 06/26/20 12 11:23AM BY JONNY HIRSCH MA, ANNOTATI ON/ADDEN DUM Nyla Julianna'Alessand ro null, [facility] 6 09:33:58 Screenin g for malignan t neoplasm of colon Completed 201104/12/2014 RECORDED 06/26/20 12 11:23AM BY JONNY HIRSCH MA, ANNOTATI ON/ADDEN DUM Nyla Julianna'Alessand ro null, [facility] 6 09:33:58 Urgent desire to urinate 76303530 Completed 201104/12/2014 RECORDED 06/26/20 12 11:23AM BY JONNY HIRSCH MA, GRETAATI ON/ADDEN DUM Nyla Julianna'Alessand ro null, [facility] 6 09:33:58 Migraine 27610577 Completed 201203/16/2014 STRESS ENDUCED; RECORDED 10/11/19 13 1:44AM BY JONNY HIRSCH MA, ANNOTATI ON/ADDEN DUM Chen Bah RN null, [facility] 9 09:52:19 Anemia 999427946 Completed 201202/25/2023 Tita Medrano PA-C [address] [facility] [address], [place], [address] , [facility] 3 10:45:09 Examinat ion for suspecte d mental disorder Completed 201203/16/2014 RECORDED 06/29/20 13 10:27AM BY JONNY HIRSCH MA, GRICEL ON/ADDEN DUM Nyla Nava'Alessand ro null, [facility] 6 09:33:58 Contact dermatit is [id number] Completed 201203/16/2014 RECORDED 06/29/20 13 10:27AM BY JONNY HIRSCH MA, ANNOTATI ON/ADDEN DUM Nyla pulido null, [facility] 6 09:33:58 External hemorrho ids 55772068 Active 2012 Not Available [facility] 0 02:53:58 Influenz a vaccine needed 79278573673 06 Completed 201210/01/2016 RECORDED 06/29/20 13 10:32AM BY JONNY HIRSCH MA, OFFICE VISIT Divina hernandez, [facility] 7 10:05:40 Tobacco user 585173153 Completed 201206/23/2018 Brittany bang MA null, [facility] 8 09:13:22 History of clinical finding in subject 341188297 Completed 201210/01/2016 RECORDED 06/29/20 13 10:28AM BY JONNY HIRSCH MA, OFFICE VISIT Divina hernandez, [facility] 7 10:05:56 Adult health examinat ion Completed 201210/01/2016 STORY: COLONOSC OPY DONE LEE PEARL. DUE 2019; RECORDED 06/29/20 13 10:58AM BY NYAL WONG MD, OFFICE VISIT Divina hernandez, [facility] 7 10:05:47 Adult health examinat ion Completed 201203/16/2014 RECORDED 06/29/20 13 10:27AM BY JONNY HIRSCH MA, ANNOTATI ON/ADDEN DUM Divina Duncan MA null, [facility] 7 10:05:47 Hyperlip idemia 74904780 Active 2012 Not Available [facility] 0 02:53:58 Irritabl e bowel syndrome 51028030 Active 2012 Not Available [facility] 0 02:53:58 Migraine 18154161 Completed 201210/01/2016 RECORDED 06/29/20 13 10:27AM BY JONNY HIRSCH MA, OFFICE VISIT Chen Bah RN null, [facility] 9 09:52:19 Palpitat ions 73844389 Completed 201203/16/2014 RECORDED 06/29/20 13 10:27AM BY JONNY HIRSCH MA, ANNOTATI ON/ADDEN DUM Nyla SandovalAlessand ro null, [facility] 6 09:33:58 Vitamin D deficien cy 12190815 Active 2012 Not Available [facility] 0 02:53:58 Examinat ion for suspecte d mental disorder Completed 201204/12/2014 RECORDED 06/29/20 13 10:27AM BY JONNY HIRSCH MA, ANNOTATI ON/ADDEN DUM Nyla Nava'Alessand ro null, [facility] 6 09:33:58 Contact dermatit is 05069385 Completed 201204/12/2014 RECORDED 06/29/20 13 10:27AM BY JONNY HIRSCH MA, ANNOTATI ON/ADDEN DUM Nyla Nava'Alessand ro null, [facility] 6 09:33:58 Palpitat ions 50664446 Completed 201204/12/2014 RECORDED 06/29/20 13 10:27AM BY JONNY HIRSCH MA, ANNOTATI ON/ADDEN DUM Nyla Nava'Alessand ro null, [facility] 6 09:33:58 Laborato ry procedur e performe d 000712010 Completed 201310/01/2016 RECORDED 02/17/20 14 1:07PM BY ELIZABETH SOLOMON MA null, [facility] 7 10:05:44 Migraine 34886874 Active 2018 Not Available [facility] 0 02:53:58 Constipa tion 60463698 Completed 201908/05/2020 Brittany bang MA null, [facility] 0 11:13:53 Abdomina l bloating 350167492 Completed 201908/05/2020 Brittany bang MA null, [facility] 0 11:13:50 Osteopor osis 85772224 Active 2020 Tita Medrano PA-C [address], [place], [address] , [facility] 1 13:48:53 Impingem ent syndrome of left shoulder region 92345332978 9104 Completed 202006/20/2021 Tita Medrano PA-C [address], [place], [address] , [facility] 2 11:04:59 Urinary incontin ence 568199790 Active 2020 Tita Medrano PA-C [address], [place], [address] , [facility] 1 13:48:57 Seasonal allergic rhinitis 435989887 Active 2020 Tita Medrano PA-C [address], [place], [address] , [facility] 1 13:49:03 Gastroes ophageal reflux disease 014748834 Active 2020 Tita Medrano PA-C [address], [place], [address] , [facility] 1 14:30:25 Strain of trapeziu s muscle 198257061 Active 2020 Ttia Medrano PA-C [address], [place], [address] , [facility] 1 14:30:26 Headache 36242251 Completed 202006/20/2021 Tita Medrano PA-C [address], [place], [address] , [facility] 1 10:12:36 Degenera tion of cervical interver tebral disc 51032116 Active 2020 Tita Medrano PA-C [address], [place], [address] , [facility] 1 10:11:44 Calcific tendinit is of left shoulder 31032790073 9108 Active 2020 Tita Medrano PA-C [address], [place], [address] , [facility] [facility] 1 10:11:46 Impingem ent syndrome of left shoulder region [id number] 9104 Active 2021 Tita Medrano PA-C [address], [place], [address] , [facility] 2 11:04:59 Chronic low back pain 357259022 Active 2022 Tita Medrano PA-C [address], [place], [address] , [facility] 3 13:26:01 History of squamous cell carcinom a of skin 281277470 Active 2024 Tita Medrano PA-C [address], [place], [address] , [facility] 5 11:17:15 Problem Notes None recorded. Procedures Surgical History Date Name Laterality Status Provider Name and Address Organization Details Recorded Time 03/13/20 25 Most Recent Mammogram completed Lorenza Thao [facility] 03/15/2025 11:11:19 03/13/20 25 Mammogram screening completed Lorenza Thao [facility] 03/15/2025 11:11:00 03/10/20 25 Advanced Care Planning completed Alexus Yoo MA [facility] 03/10/2025 09:34:41 03/02/20 24 Advanced Care Planning completed Tita Medrano PA-C [address], [place], [address], [facility] 03/02/2024 11:02:56 12/02/19 22 Seismic Engineer Surgery completed Tita POLO-Shayna [address], [place], [address], [facility] 02/21/2022 10:41:49 10/07/19 20 Mini-Cog Test completed Brittany marinelli MA [facility] 10/07/2019 09:47:07 01/07/20 19 Date of Last Colonoscopy completed Sharon Hammond [facility] 01/06/2019 15:55:27 01/07/20 19 Colonoscopy completed Tita Medrano PA-C [address] [facility] [address], [place], [address], [facility] 10/07/2019 10:07:38 10/21/19 19 Most Recent Bone Density completed Brittany marinelli MA [facility] 10/07/2019 09:38:10 10/21/19 19 Dxa bone density angela vrt fx completed Brittany marinelli MA [facility] 10/07/2019 09:37:34 10/06/19 19 Mini-Cog Test completed Brittany marinelli MA [facility] 10/06/2018 10:22:18 07/22/20 18 Date of Last Pap Smear completed Brittany marinelli MA [facility] 10/06/2018 10:32:07 10/03/19 18 Fall Risk Assessment completed Divina Duncan MA [facility] 10/03/2017 10:16:08 10/03/19 18 Mini-Cog Test completed Divina Duncan MA [facility] 10/03/2017 10:19:53 10/01/19 17 Fall Risk Assessment completed Divina Duncan MA [facility] 10/01/2016 10:13:42 10/01/19 17 Mini-Cog Test completed Divinanicko Negronriky LILLY [facility] 10/01/2016 10:16:50 09/27/19 16 Fall Risk Assessment completed Marguerite Mccarthy MA [facility] 09/27/2015 09:07:29 09/27/19 16 Mini-Cog Test completed Marguerite Mccarthy MA [facility] 09/27/2015 09:07:29 Tonsillectomy completed Wendie Rivera MA [facility] 02/21/2022 09:51:45 Appendectomy completed Deloris Stinson [facility] 07/01/2014 09:11:51 Imaging Results None recorded. Procedure Notes None recorded. Medical Equipment None Reported. Allergies No known drug allergies Medications Name Sig Start Date Stop Date Status Note LastModified by Organization Details LastModified Time cyclobenz aprine 10 mg tablet TAKE 1 TABLET BY MOUTH THREE TIMES A DAY 02/25 completed Not Available Not Available Not Available amoxicill in 500 mg capsule active Not Available Not Available Not Available atorvasta tin 40 mg tablet active Not Available Not Available Not Available Colace 100 mg capsule Take 1 capsule as needed by oral route at bedtime. 03/02 completed Not Available Not Available Not Available acetamino phen 325 mg tablet Take 2 tablets every 6 hours by oral route as needed. active Not Available Not Available No t Available prednison e 10 mg tablet Take 5 tablets every day by oral route for 10 days. 10/03 completed Not Available Not Available Not Available atorvasta tin 20 mg tablet TAKE 1 TABLET BY MOUTH EVERYDAY AT BEDTIME active Not Available Not Available No t Available cetirizin e 10 mg tablet Take 1 tablet every day by oral route for 30 days. 06/01 completed Not Available Not Available Not Available sumatript an 100 mg tablet TAKE 1 TABLET BY MOUTH EVERY DAY NEEDED DIRECTED - MAX OF 2 TABLETS A DAY active Not Available Not Available No t Available hydrocodo ne 5 mg-acetam inophen 325 mg tablet 10/20 completed Not Available Not Available Not Available meloxicam 15 mg tablet TAKE 1 TABLET BY MOUTH EVERY DAY WITH MEALS FOR 30 DAYS 03/02 completed Not Available Not Available Not Available phenazopy ridine 200 mg tablet TAKE 1 TABLET BY MOUTH THREE TIMES A DAY FOR 2 DAYS 02/25 completed Not Available Not Available Not Available famotidin e 40 mg tablet TAKE 1 TABLET BY MOUTH EVERY DAY 08/04 completed Not Available Not Available Not Available prednison e 20 mg tablet DAILY 01/16 completed RECORDED 03/16/20 13 9:24AM BY NYLA WONG MD, MEDICATI ON AUTO-PRECIOUS CTIVATIO N; Not Available Not Available Not Available doxycycli ne hyclate 50 mg capsule TAKE 1 CAPSULE BY MOUTH TWICE A DAY 02/01 completed Not Available Not Available Not Available Zomig 2.5 mg tablet Take 1 tablet every day by oral route. 08/04 completed Not Available Not Available Not Available ciproflox acin 250 mg tablet Take 1 tablet every 12 hours by oral route for 3 days. 06/23 completed Not Available Not Available Not Available ciproflox acin 500 mg tablet Take 1 tablet every 12 hours by oral route as directed for 3 days. 02/16 completed Not Available Not Available Not Available sulfameth oxazole 800 mg-trimet hoprim 160 mg tablet Take 1 tablet twice a day by oral route for 3 days. 08/04 completed Not Available Not Available Not Available zolmitrip de la garza 2.5 mg disintegr ating tablet take 1 tablet by mouth three times a day NEEDED 06/23 completed Not Available Not Available Not Available amoxicill in 500 mg tablet TAKE 1 TABLET BY MOUTH THREE TIMES A DAY FOR 7 DAYS 03/02 completed Not Available Not Available Not Available oxycodone -acetamin ophen 5 mg-325 mg tablet 02/16 completed Not Available Not Available Not Available hydrocort isone 2.5 % topical cream with perineal applicato r INSERT INTO THE RECTUM 2 TIMES A DAY. active Not Available Not Available No t Available famotidin e 20 mg tablet TAKE 1 TABLET BY MOUTH TWICE A DAY NEEDED 06/14 completed Not Available Not Available Not Available amitripty line 25 mg tablet TAKE 1 TABLET BY MOUTH EVERY DAY AT BEDTIME 01/28 completed Not Available Not Available Not Available amitripty line 10 mg tablet TAKE 1 TABLET EVERY DAY BY ORAL ROUTE FOR 30 DAYS. 10/20 completed Not Available Not Available Not Available amlodipin e 5 mg-benaze pril 20 mg capsule active Not Available Not Available Not Available phenazopy ridine 100 mg tablet TAKE 1 TABLET BY MOUTH 3 TIMES A DAY WITH MEALS FOR 1 DAY. *NOT COVERED* 06/20 completed Not Available Not Available Not Available erythromy aman 5 mg/gram (0.5 %) eye ointment APPLY TO AFFECTED AREA OF LEFT UPPER LID THREE TIMES A DAY 02/01 completed Not Available Not Available Not Available oseltamiv ir 75 mg capsule Take 1 capsule every day by oral route for 10 days. 10/03 completed Not Available Not Available Not Available ranitidin e 150 mg tablet TAKE 1 TABLET BY MOUTH TWICE A DAY 10/07 completed Not Available Not Available Not Available ibuprofen 400 mg tablet Take 1 mg every 6 hours by oral route as needed for 10 days. 02/25 completed Not Available Not Available Not Available omeprazol e 20 mg capsule,d elayed release TAKE 1 CAPSULE EVERY DAY BY ORAL ROUTE BEFORE MEALS FOR 30 DAYS. 07/16 completed Not Available Not Available Not Available ibuprofen 600 mg tablet 1 TABLET EVERY 6 HOURS NEEDED FOR PAIN active Not Available Not Available No t Available estradiol 0.01% (0.1 mg/gram) vaginal cream USE 1 GRAM VAGINALL Y EVERY SATURDAY AND 02/01 completed Not Available Not Available Not Available methylpre dnisolone 4 mg tablets in a dose pack TAKE 6 TABLETS ON DAY 1 DIRECTED ON PACKAGE AND DECREASE BY 1 TAB EACH DAY FOR A TOTAL OF 6 DAYS 07/16 completed Not Available Not Available Not Available fluticaso ne propionat e 50 mcg/actua tion nasal spray,alexandro pension Tok 2 sprays every day by intranas al route for 30 days. 10/03 completed Not Available Not Available Not Available dicyclomi ne 10 mg capsule TAKE 1 CAPSULE BY MOUTH THREE TIMES A DAY NEEDED active Not Available Not Available No t Available amoxicill in 875 mg-potass ium clavulana te 125 mg tablet TAKE 1 TABLET BY MOUTH EVERY 12 HOURS FOR 10 DAYS 04/18 completed Not Available Not Available Not Available tobramyci n 0.3 %-dexamet hasone 0.1 % eye drops,alexandro pension INSTILL 1 DROP INTO LEFT EYE 4 TIMES DAILY FOR 1 WEEK 02/01 completed Not Available Not Available Not Available oxycodone 5 mg tablet TAKE 1 TABLET BY MOUTH EVERY 6 HOURS, NEEDED FOR PAIN 02/21 completed Not Available Not Available Not Available Fish Oil 500 mg capsule Take by oral route. active Not Available Not Available No t Available neomycin 3.5 mg/g-poly myxin B 10,000 unit/g-de xameth 0.1 % eye oint APPLY SMALL RIBBON TO LEFT UPPER LID FOUR TIMES A DAY FOR 10 DAYS 02/01 completed Not Available Not Available Not Available magnesium 200 mg tablet Take 1 tablet every other day by oral route. 06/01 completed Not Available Not Available Not Available Calcium 500 + D 500 mg-5 mcg (200 unit) tablet Take 1 tablet every day by oral route. 02/13 completed Not Available Not Available Not Available Restasis 0.05 % eye drops in a dropperet te INSTILL 1 DROP INTO AFFECTED EYE(S) BY OPHTHALM IC ROUTE EVERY 12 HOURS active Not Available Not Available No t Available nitrofura ntoin monohydra te/macroc rystals 100 mg capsule TAKE 1 CAPSULE BY MOUTH TWICE A DAY FOR 7 DAYS 06/20 completed Not Available Not Available Not Available duloxetin e 30 mg capsule,d elayed release TAKE 1 CAPSULE BY MOUTH EVERY DAY 06/30 completed Not Available Not Available Not Available pregabali n 50 mg capsule TAKE 1 CAPSULE BY MOUTH EVERY DAY active Not Available Not Available No t Available Zomig 08/01 completed Not Available Not Available Not Available Advil 200 mg. 08/01 completed Not Available Not Available Not Available hyoscyami ne sulfate TWO TIMES DAILY, NEEDED 07/29 completed RECORDED 09/14/19 14 10:43AM BY NYLA WONG MD, MEDICATI ON AUTO-PRECIOUS CTIVATIO N; Not Available Not Available Not Available Calcium 500 1 tablet every other day 02/16 completed Not Available Not Available Not Available Zostavax (PF) 19,400 unit/0.65 mL subcutane ous suspensio n MAIKEL X 1 active Not Available Not Available Not Available Femhrt Low Dose 0.5 mg-2.5 mcg tablet active Not Available Not Available Not Available Lawrence 3-6-9 (with lipase) 40 mg-60 mg-10 unit capsule Take 1 capsule every day by oral route. 06/01 completed Not Available Not Available Not Available GaviLyte- G 236 gram-22.7 4 gram-6.74 gram-5.86 gram oral solution 06/01 completed Not Available Not Available Not Available Gavilax 17 gram/dose oral powder TAKE 17 GM BY MOUTH DAILY,IN STR:DISS OLVE IN WATER BEFORE TAKING 02/21 completed Not Available Not Available Not Available Prevnar 13 (PF) 0.5 mL intramusc ular syringe PHARMACY ADMINIST ERED 08/01 completed Not Available Not Available Not Available Xifaxan 550 mg tablet 06/01 completed Not Available Not Available Not Available Caltrate 600 plus D 2 tabs qd active Not Available Not Available No t Available Shingrix (PF) 50 mcg/0.5 mL intramusc ular suspensio n, kit 10/03 completed Not Available Not Available Not Available Fluad Quad (65yr up)(PF) 60 mcg (15 mcg x 4)/0.5mL IM syringe PHARMACY ADMINIST ERED 08/01 completed Not Available Not Available Not Available Vitals Date Recorded Body height Body mass index (BMI) Body weight Heart rate Oxygen saturation Oxygen saturation in Arterial blood by Pulse oximetry Body temperature Systolic And Diastolic Provider Name and Address Organization Details Last Updated DateTime 5 160.66 cm 23 kg/m2 35632.3 g 78 /min 100 % 100 % 98 [degF] 133/73 mm[Hg] Wendie Rivera MA [facility] [place] 5 10:29:44 Date Recorded Body height Body mass index (BMI) Body weight Heart rate Oxygen saturation Oxygen saturation in Arterial blood by Pulse oximetry Body temperature Systolic And Diastolic Provider Name and Address Organization Details Last Updated DateTime 3 160.66 cm 22.1 kg/m2 80910.6 4 g 83 /min 98 % 98 % 98.1 [degF] 111/69 mm[Hg] Brittany fagn MA [facility] 3 10:10:47 Date Recorded Body height Body mass index (BMI) Body weight Heart rate Oxygen saturation Oxygen saturation in Arterial blood by Pulse oximetry Body temperature Systolic And Diastolic Provider Name and Address Organization Details Last Updated DateTime 4 160.66 cm 22.8 kg/m2 48263.0 1 g 72 /min 97 % 97 % 98 [degF] 139/80 mm[Hg] Julissa Dunn MA [facility] 4 10:37:40 Date Recorded Body height Body mass index (BMI) Body weight Oxygen saturation Oxygen saturation in Arterial blood by Pulse oximetry Heart rate Body temperature Systolic And Diastolic Provider Name and Address Organization Details Last Updated DateTime 5 160.66 cm 22.8 kg/m2 31324.0 1 g 97 % 97 % 73 /min 97.3 [degF] 111/68 mm[Hg] Alexus Yoo MA [facility] 5 09:38:46 Date Recorded Body height Body mass index (BMI) Body weight Heart rate Oxygen saturation Oxygen saturation in Arterial blood by Pulse oximetry Body temperature Systolic And Diastolic Provider Name and Address Organization Details Last Updated DateTime 5 160.66 cm 23.5 kg/m2 76146.3 8 g 71 /min 99 % 99 % 98 [degF] 125/69 mm[Hg] Brittany fang MA [facility] 5 13:44:48 Social History Question Answer Notes LastModified by Organizat ion Details LastModified Time Tobacco Smoking Status Former Sm[facility] during [facility] 06/23/2018 09:20:50 Do You Have An Advance Directive? Yes Information not available 02/21/2022 Is Blood Transfusion Acceptable In An Emergency? Yes Information not available 09/27/2015 What Is Your Level Of Caffeine Consumption? Moderate 2 Cups Every Day Information not available 02/25/2023 How Much Tobacco Do You Chew? None Information not available 06/23/2018 What Type Of Diet Are You Following? REGULAR Information not available 07/01/2014 Which Illicit Or Recreational Drugs Have You Used? None Information not available 06/23/2018 When Did You Quit Smoking? 16+yearssinc elastcigaret te [email or web address] Information not available 02/13/2021 Live Alone Or With Others? With Others (Zac) And Son (Andrew Russell ) Information not available 02/21/2022 Do You Take Precautions To Prevent Distracted Driving? Yes Information not available 09/27/2015 How Often Do You Need To Have Someone Help You When You Read Instructions, Pamphlets, Or Other Written Material From Your Doctor Or Pharmacy? Never Information not available 09/27/2015 Have You Served In The ? No [email or web address] Information not available 10/01/2016 Have You Or Anyone In Your Household Had Any Of The Following Symptoms In The Last 14 Days: Sore Throat, Cough, Chills, Body Aches For Unknown Reasons, Shortness Of Breath For Unknown Reasons, Loss Of Smell, Loss Of Taste, Fever At Or Greater Than 100 Degrees Fahrenheit? No Information not available 08/01/2020 Are You Or Anyone In Your Household A Health Care Provider Or Emergency Responder? No Information not available 08/01/2020 To The Best Of Your Knowledge Have You Been In Close Proximity To Any Individual Who Tested Positive For COVID-19? No Information not available 08/01/2020 What Was The Date Of Your Most Recent Tobacco Screening? 03/10/2025 [email or web address] Information not available 03/10/2025 How Many Children Do You Have? 3 Zac Sánchez Anna, And Andrew Information not available 07/01/2014 Do You Use Your Seat Belt Or Car Seat Routinely? Yes Information not available 02/21/2022 Seat Belts Used Routinely Yes Information not available 02/21/2022 Are You Sexually Active? No Information not available 02/13/2021 Smoke Alarm In Home Yes Information not available 02/21/2022 Do You Have Smoke And Carbon Monoxide Detectors In Your Home? Yes Information not available 02/21/2022 At What Age Did You Start Smoking Tobacco? 18 [email or web address] Information not available 02/13/2021 Are You Passively Exposed To Smoke? No Information not available 09/27/2015 How Much Tobacco Do You Smoke? No Information not available 02/01/2025 Do You Use Sunscreen Routinely? Yes Information not available 09/27/2015 Sex: Unknown Functional Status Question Answer Note LastModified by Organizat ion Details LastModified Time Do you use any illicit or recreational drugs? No Information not available 02/25/2023 What is your level of alcohol consumption? Occasional Information not available 07/01/2014 Do you or have you ever used smokeless tobacco? Never used smokeless tobacco Information not available 10/07/2019 Are you currently employed? No retired Information not available 06/23/2018 Are you able to walk independently without assistance or assistive devices? YESWOREST Information not available 02/21/2022 Are you able to care for yourself independently? 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 Never used electronic cigarettes Information not available 02/21/2022 What is your exercise level? Occasional walking and yoga Information not available 07/01/2014 Mental Status None recorded. Family History Relationship Description Onset Age of this Age Resolved Age Notes LastModified by Organization Details LastModified Time Mother Alzheimer's disease [email or web address] Not available 2020 13:32:20 Mother Migraine [email or web address] Not available 02/13/2021 13:32:20 Father Essential hypertension 92 [email or web address] Not available 10/2024 10:11:01 Maternal Uncle Norwood's chorea [email or web address] Not available 2024 10:11:01 Son Angelman syndrome 38 [email or web address] Not available 2024 10:11:01 Medical History Condition Response Gout N Other N Kidney Stones N Blood Diseases N Hyperthyroidism N Breast Cancer N Hypothyroidism N Lung Disease N Depression N COPD N Defects or Inherited Disease N Anesthesia Complications N Headaches/Migraines Y Anxiety Disorder N Varicose Veins N Muscle, Joint, or Bone Problems Y Obesity N Vision or Eye Problems Y Arthritis Y Head Injury/Concussion N Infertility N Polyps N Congenital Anomalies N Acid Reflux (GERD) N Cancer N Stroke N ADHD N Endometriosis N High Cholesterol Y Liver Disease N Fibromyalgia N Kidney Disease N Heart Problems N Ear or Hearing Problems N Hospitalizations N Thyroid Problems N GI Problems Y Acne N Eating Disorder N Skin Problems N Anemia N Constipation N Bladder Problems N Mental Illness N Diabetes N Ovarian Cancer N Blood Transfusions N Seizures/Epilepsy N Tuberculosis N AIDS/HIV N Congestive Heart Failure (CHF) N Eczema N Abuse/Domestic Violence N Diverticulitis N Asthma N Allergies N Reflux/GERD Y Hepatitis N Pulmonary Embolism N Hypertension N Chicken Pox Y Autism Spectrum Disorder (ASD) N Osteoporosis Y Gynecological History Statement/Question Response Date of Last Pap Smear 07/22/2018 Date of Last Colonoscopy 01/06/2019 Most Recent Mammogram 03/13/2025 Most Recent Bone Density 10/21/2018 Obstetrics History GPAL:G 0 P 0 0 0 0 Immunizations Vaccine Type Date Status Note Provider Nam e and Address Organization Details Recorded Time influenza, seasonal, intradermal, preservative free [address] [facility] 05/31/2020 09:07:07 pneumococcal polysaccharide PPV23 [address] [facility] 05/31/2020 09:07:07 Influenza, high-dose, trivalent, PF [address] [facility] 02/21/2022 09:46:37 zoster live [address] [facility] 07/16/2022 10:59:16 Influenza, split virus, trivalent, preservative [address] [facility] 05/31/2020 09:07:06 zoster recombinant [address] [facility] 02/25/2023 10:11:47 Influenza, split virus, trivalent, preservative [address] [facility] 05/31/2020 09:07:06 Pneumococcal conjugate PCV 13 0 completed MAXX Williamson, [facility] 02/21/2022 09:46:37 COVID-19, mRNA, LNP-S, PF, 30 mcg/0.3 mL dose [address] [facility] 02/21/2022 09:46:37 COVID-19, mRNA, LNP-S, PF, 30 mcg/0.3 mL dose [address] [facility] 02/21/2022 09:46:37 Influenza, high-dose, quadrivalent, PF [address] [facility] 02/21/2022 09:46:37 Influenza, high-dose, trivalent, PF [address] [facility] 02/21/2022 09:46:37 COVID-19, mRNA, LNP-S, PF, 30 mcg/0.3 mL dose [address] [facility] 02/21/2022 09:46:37 Influenza, adjuvanted, quadrivalent, PF [address] [facility] 02/21/2022 09:46:37 Pneumococcal conjugate PCV 13 7 completed Not Available [facility] 09/19/2019 02:21:37 pneumococcal polysaccharide PPV23 8 completed Not Available [facility] 09/19/2019 02:21:28 Td (adult), 2 Lf tetanus toxoid, preservative free, adsorbed 9 completed Not Available [facility] 09/19/2019 02:21:30 Td (adult), 2 Lf tetanus toxoid, preservative free, adsorbed 9 completed Sharon Hammond null, [facility] 05/31/2020 09:07:07 Tdap 0 completed Sharon Hammond null, [facility] 05/31/2020 09:07:07 influenza, seasonal, intradermal, preservative free 2 completed Sharon Hammond null, [facility] 05/31/2020 09:07:07 zoster live 3 completed Sharon Hammond null, [facility] 05/31/2020 09:07:07 influenza, seasonal, intradermal, preservative free 3 completed Sharon Hammond null, [facility] 05/31/2020 09:07:07 Past Encounters Encounter ID Performer Location Encounter Start Date Encounter Closed Date Diagnosis/Indication Diagnosis SNOMED-CT Code Diagnosis ICD10 Code Diagnosis IMO Codes Diagnosis Note [id number] auto[facility]Comm erce [address] [facility] [place] [address] 06/03/2009 00:00:00 [id number] autoEComm erce [address] [facility] [place] [address] 12/29/2009 00:00:00 [id number] autoEComm erce [address] [facility] [place] [address] 03/11/2012 00:00:00 [id number] autoEComm erce [address] [facility] [place] [address] 06/26/2012 00:00:00 [id number] autoEComm erce [address] [facility] [place] [address] 06/29/2013 00:00:00 [id number] Nyla pulido MD Main Office [address] [facility] [address] [place] [address] 07/01/2014 09:36:11 07/01/2014 10:27:38 Adult health examination [id number] Migraine 63195232 pt will continue zomig prn [id number] Nyla pulido MD Main Office [address] [place] [address] 09/27/2015 08:51:58 09/27/2015 09:33:55 Adult health examination 387718028 Z00.00 At [facility] ed risk for falls 597772994 Z91.81 Hyperlipidemia 23454047 E78.5 pt is at 2.6% risk per ASCVD due to hi HDL [id number] Nyla pulido MD Main Office [address] [address] [place] [address] 10/01/2016 10:02:17 10/01/2016 11:04:09 Adult health examination 568383603 Z00.00 Screening for malignant neoplasm of breast 066648303 Z12.39 Administra tion of pneumococcal vaccine 01066259 Z23 Screening for osteoporosis 754240564 Z13.820 Thoracic back pain 84193 8004 M54.6 Gastroesop hageal reflux disease 642826120 K21.9 Hyperlipidemia 79068380 E78.5 pt is at 6% risk per ASCVD due to hi HDL/ 2016 [id number] Shannan Medrano PA-C Main Office [address] [address] [place] [address] 01/15/2017 08:42:21 01/15/2017 09:45:17 Scapulalgia 68608183 M89.8X1 Medial scapular muscle strain. Recommend rest; Cold/warm compressio n. OTC anti-infla mmatory recommende d for symptomati c relief. Strain of trapezius muscle 823724296 S46.812A [id number] Shannan Medrano PA-C Main Office [address] [address] [place] [address] 05/03/2017 13:31:11 05/03/2017 14:21:56 Contact dermatitis caused by urushiol from [facility] patricia 446341473 L23.7 Can continue to use any topical ointment, like calamine lotion, that provides relief. Take Prednisone taper daily for 10 days in the AM Use soap and water on any areas of rash while showering. [id number] Nyla pulido MD Main Office [address] [address] [place] [address] 10/03/2017 09:58:33 10/03/2017 10:52:24 Adult health examination 445597989 Z00.00 Administra tion of pneumococcal vaccine 73150824 Z23 Allergic rhinitis 856576 04 J30.9 [id number] Shannan Medrano PA-C Main Office [address] [address] [place] [address] 12/24/2017 13:50:51 12/24/2017 14:34:36 Dysuria 87561282 R30.0 Pt. is symptomati c with UTI symptoms after taking 3 days of Bactrim DS. Will send culture out and treat for 3 more days. Increase fluids. Urinary tr act infectious disease 84679201 N39.0 [id number] Tita Medrano PA-C Main Office [address] [place] [address] 06/23/2018 09:07:20 06/23/2018 10:23:41 Pain of shoulder region 68176335 M25.512 in deltoid region, but shoulder NT to direct palp - likely d/t RTC - will get ortho eval and PT - see below [id number] Emigdio Gutierrez MD Main Office [address] [address] [place] [address] 10/06/2018 09:56:48 10/06/2018 11:17:44 Adult health examination 862024630 Z00.00 Requires a tetanus booster 847430320 Z23 Menopause present 714894 006 Z78.0 Hepatitis C screening 41 5679189 Z11.59 Impingemen t syndrome of left shoulder region 4095066331 90789 M75.42 s/p roddy injxn, cont f/u c ortho Irritable bowel syndrome 97981140 K58.9 cont meds, f/u c gi - next yr due for colonoscop y Anemia 558072720 D64.9 Vitamin D deficiency 347 23210 E55.9 Hyperlipidemia 98119787 E78.00 initially discussed ascvd risk Seasonal a llergic rhinitis 454629701 J30.2 Migraine 15933792 G43.90 9 last vaughan a few days ago, aborted c triptan [id number] Gurpreet Page MD Main Office [address] [place] [address] 06/01/2019 09:08:22 06/01/2019 09:50:13 Acute sinusitis 36863214 J01.90 rec probiotics while on abx Tension-type headache 39 4881662 G44.209 25 minute office visit with greater than 50% of the visit face-to-fa ce with the patient and/or family providing counseling and/or coordinati on of care. Subconjunc tival hemorrhage 84624192 H11.31 cont artificial tears as dir by eye Seasonal a llergic rhinitis 135564717 J30.2 [id number] Emigdio Gutierrez MD Main Office [address] [facility] [address] [facility] [address] 10/07/2019 09:22:28 10/07/2019 10:32:56 Adult health examination 016358557 Z00.00 pending mammo later this month Irritable bowel syndrome 39154520 K58.9 cont meds/fiber supp, f/u c gi Hyperlipidemia 05467225 E78.00 initially discussed ascvd risk Migraine 16877858 G43.90 9 better lately - prn triptan Seasonal a llergic rhinitis 029580974 J30.2 Impingemen t syndrome of left shoulder region 4034190576 07528 M75.42 s/p roddy injxn, cont f/u c ortho Osteoporosis 08304896 M8 1.0 had reclast x 1 last yr, cont f/u c endo yrly, cont calcium/vi t d as dir by endo [id number] José Miguel Sanchez MD Main Office [address] [address] 11/27/2019 15:19:19 11/27/2019 16:12:28 Dysuria 27051524 R30.0 SYMPTOMS: burning with urination? no frequency? yes hematuria? no lower abdominal pain? no symptoms similar to previous UTI? yes POSSIBLE CONTRAINDI CATIONS TO TELEPHONE TREATMENT: > 65 years of age? yes fevers? no recent UTI (within 1 month)? no new low back pain? no nausea or vomiting? no ? no history of interstiti al cystitis? no PROVIDER ACTION: Reviewed nursing notes? yes Recommende d action appropriat e for telephone treatment Antibiotic treatment Cipro x 3 days Urinary tr act infectious disease 23409670 N39.0 hydration, rest, cipro bID as directed x 3 days. if sx not better please call back, will need UA nd culture if not improved. Eat 20 mins prior to abx. [id number] Emigdio Gutierrez MD Main Office [address] [place] [address] 02/17/2020 13:02:20 02/17/2020 13:59:24 Irritable bowel syndrome 46045209 K58.9 cont meds/fiber supp, f/u c gi - rec. trial of changing fiber supp (metamucil ) to citrucel Abdominal bloating 54392 9008 R14.0 see above - also rec less cruc. veggies Constipation 05035742 K5 9.00 rec. trial of colace 1-2 tabs/day Early satiety 695022966 R68.81 less likely gastropare sis since no h/o DM, but will check UGIS to r/o GOO -- could call to cx if feeling better from above tmt [id number] José Miguel Sanchez MD [facility] [address] [place] [address] 08/01/2020 13:40:19 08/01/2020 14:55:01 Increased frequency of urination 511854588 R35.0 She will call at the end the week if her symptoms persist and she understand s that we will have to get a urine sample at that time. [id number] Mckenzie Moy MD Main Office [address] [place] [address] 08/05/2020 10:59:29 08/05/2020 11:43:45 Dysuria 70058463 R30.9 s/p tx with bactrim no improvemen t I suspect this is not related to UTI but for patient reassuranc e will send for Ucx. Urinary incontinence 165 131584 R32 Mixed urgency with stress incontinen ce patient notes she feels like she is not emptying her bladder. e also has hx of constipati on from IBS per patient thus I advises high fiber diet.Patie nt declined vaginal exam but did have suprapubic tenderness thus will get US, she has had 3 vaginal deliveries with sx this maybe due to prolapse as well. Will get US and advised patient to see ROOM MANAGER sooner if possible. Constipation 13595474 K5 9.00 Notes she suffer from IBS constipati on type, high fiber diet discussed. She takes OTC colace.Adv ised she can try miralax otc for 3 days and if improvemen t she can maintain bm with fiber supplement s however frequent hydration was also enforced. [id number] Tita Medrano PA-C Main Office [address] [facility] [address] [facility] [place] [address] 02/13/2021 13:21:13 02/13/2021 14:29:45 Adult health examination 959827806 Z00.00 pap, mammo, colon utd Irritable bowel syndrome 20747434 K58.9 cont meds/fiber supp, f/u c gi, mildly more constipate d lately - so rec increase colace to 1-2 tabs per day Hyperlipidemia 48852155 E78.00 initially discussed ascvd risk Migraine 97178285 G43.90 9 better lately - prn triptan Seasonal a llergic rhinitis 200021254 J30.2 Impingemen t syndrome of left shoulder region 9055942536 46816 M75.42 s/p roddy injxn, cont f/u c ortho Osteoporosis 37255211 M8 1.0 had reclast x 1 last yr, cont f/u c endo yrly, cont calcium/vi t d as dir by endo Urinary incontinence 165 144862 R32 had pelvic floor PT, cont f/u c urogyn Vitamin D deficiency 347 89290 E55.9 Fatigue 69851861 R53.83 Gastroesop hageal reflux disease 455237498 K21.9 mild - rec prn pepcid Strain of trapezius muscle 895741546 S46.811A pt states she is going to see an acupunctur ist next month - also rec hep, massage, prn moist heat [id number] José Miguel Sanchez MD Main Office [address] [facility] [address] [place] [address] 03/28/2021 13:17:56 03/28/2021 14:06:20 Dizziness 197894341 R42 Benign par oxysmal positional vertigo 493700772 H81.10 She will try exercises on her own and if not helpful will make an appointmen t with PT. If her symptoms persist we will consider imaging. [id number] Tita Medrano PA-C [address] [address] [place] [address] 04/18/2021 08:36:40 04/18/2021 16:03:23 Headache 56315215 R51.9 h/o migraines but vaughan's over the past month are happening ~ qd and with different, mild features from her typical migraines - trial c elavil [id number] Mckenzie Moy MD [address] [address] [place] [address] 05/13/2021 09:21:01 05/15/2021 12:45:46 Dysuria 40206822 R30.0 Symptoms concerning for uti, she notes for some hematuria as well thus she was advised to go to lab to drop of urine and collect blood to asses renal function and ensure she is not anemic and look for any wbc count. She is advanced age thus I have given pyridium for short course. He previous renal function was good thus I started macrobid for empiric therapy and for theraputic alliance. She is aware to drop of urine first then get her abx. Red flags discussed and when to go to ED, such as flank pain, worsening hematuria, fever, chills, N/V. [id number] Emigdio Gutierrez MD [address] [address] [place] [address] 06/20/2021 08:14:04 06/20/2021 10:21:23 Calcific tendinitis of left shoulder 9216604798 57536 M75.32 s/p roddy injxn, cont f/u c ortho Degenerati on of cervical intervertebral disc 43350801 M50.30 s/p roddy injxn, cont f/u c ortho Migraine 97485046 G43.90 9 better on elavil - less frequent use of prn sumatripta n - will slowly titrate dose up to 25mg hs (has plenty of 10mg tabs at home) [id number] Gurpreet Page MD [address] [address] [place] [address] 10/20/2021 14:16:48 10/25/2021 11:17:39 Dysuria 85304640 R30.9 Low back pain 778142873 M54.50 ? SI mediated pain [id number] Emigdio Gutierrez MD Main Office [address] [facility] [address] [place] [address] 02/21/2022 09:38:57 02/21/2022 11:04:19 Adult health examination 491942380 Z00.00 pap, mammo, colon utd Irritable bowel syndrome 43819349 K58.9 cont meds/fiber supp, f/u c gi Hyperlipidemia 10008496 E78.00 initially discussed ascvd risk, started statin recently - recheck Migraine 76568306 G43.90 9 better lately - prn triptan Seasonal a llergic rhinitis 112047730 J30.2 Impingemen t syndrome of left shoulder region 1211691369 01548 M75.42 s/p roddy injxn, cont f/u c ortho Osteoporosis 79328230 M8 1.0 had reclast x 1 a few yrs ago, cont f/u c endo yrly, cont calcium/vi t d as dir by endo - will get re-eval since last seen 5.19 Urinary incontinence 165 673673 R32 had pelvic floor PT, cont f/u c urogyn - had sx 4.22 - resolved Gastroesop hageal reflux disease 971599690 K21.9 mild - rec prn pepcid - getting worse lately on occ - rev diet, consider ppi ac spicy meal -- dusty in light of globus sxs recently Varicella vaccination 68 533504 Z23 Impaired f asting glycemia 617236090 R73.01 Vitamin D deficiency 347 51719 E55.9 [id number] KODY XAVIER MD Main Office [address] [facility] [address] [place] [address] 07/16/2022 10:36:18 07/16/2022 12:09:42 Urinary tract infectious disease 43387859 N39.0 SYMPTOMS:b urning with urination? yesfrequen cy? yeshematur ia? nolower abdominal pain? yessymptom s similar to previous UTI? yes POSSIBLE CONTRAINDI CATIONS TO TELEPHONE TREATMENT: > 65 years of age? yesfevers? norecent UTI (within 1 month)? nonew low back pain? yesnausea or vomiting? no ? nohistory of interstiti al cystitis? PROVIDER ACTION: Reviewed nursing notes?Mejia mmended action Antibiotic treatment Dysuria 49325035 R30.0 Urine dip stick was negativeWi ll send for UA and urine cultureNo antibiotic s needed at this timecurren t differenti al: interstiti al cystitisTo help with the dysuria and pelvic pain ordered pyridium 200mg TID for 2 daysPt last UTI was on 05/2021 for which she was treated with macrobidWi ll consider US renal and bladder if no improvemen t [id number] Emigdio Gutierrez MD Main Office [address] [facility] [address] [facility] [place] [address] 02/25/2023 10:01:26 02/25/2023 11:06:09 Adult health examination 814607559 Z00.00 pap & colon utd = pending mammo tomorrow Gastroesop hageal reflux disease 016978090 K21.9 mild - rec prn pepcid - getting worse lately on occ - rev diet, consider ppi ac spicy meal -- dusty in light of globus sxs recently Hyperlipidemia 25851441 E78.00 cont statin - recheck Impingemen t syndrome of left shoulder region 8926403455 57232 M75.42 s/p roddy injxn, cont f/u c ortho Irritable bowel syndrome 89146950 K58.9 cont meds/fiber supp, f/u c gi Osteoporosis 80169729 M8 1.0 had reclast x 1 a few yrs ago, cont f/u c endo yrly, cont calcium/vi t d as dir by endo Vitamin D deficiency 347 68933 E55.9 Urinary incontinence 165 105138 R32 had pelvic floor PT, cont f/u c urogyn - had sx 4.22 - resolved Impaired f asting glycemia 481939324 R73.01 Chronic low back pain 27 5522064 M54.50 cont f/u c pain management - cont meloxicam as dir = trial c turmeric Migraine 25229271 G43.90 9 better lately - prn triptan [id number] Emigdio Gutierrez MD Main Office [address] [facility] [address] [place] [address] 03/02/2024 10:28:23 03/02/2024 11:31:37 Adult health examination 867660404 Z00.00 mammo & colon utd Gastroesop hageal reflux disease 008238973 K21.9 mild - rec prn pepcid - getting worse lately on occ - rev diet, consider ppi ac spicy meal -- dusty in light of globus sxs recently Hyperlipidemia 57730672 E78.00 cont statin - pending recheck lipids Impingemen t syndrome of left shoulder region 1352085001 61694 M75.42 s/p roddy injxn, cont f/u c ortho Irritable bowel syndrome 04955453 K58.9 cont meds/fiber supp, f/u c gi Osteoporosis 11044572 M8 1.0 had reclast x 1 a few yrs ago, cont f/u c endo yrly, cont calcium/vi t d as dir by endopendin g vit dcont f/u c endo Urinary incontinence 165 762782 R32 had pelvic floor PT, cont f/u c urogyn - had sx 4.22 - resolved Chronic low back pain 27 3952752 M54.50 cont f/u c pain management - cont prn ibu - rarely, consider tyl atc, salonpas patch o/nconside r gbn if worse Migraine 88644170 G43.90 9 a little worse lately - prn triptan - will give re-trial of amitriptyl ine Screening for malignant neoplasm of cervix 230306472 Z12.4 Advance di rective discussed with patient 752099105 Z71.89 [id number] Emigdio Gutierrez MD Main Office [address] [facility] [address] [facility] [address] 02/01/2025 10:09:19 02/01/2025 11:14:04 Chronic low back pain 831363505 M54.50 cont f/u c pain management - cont prn ibu - rarely, consider tyl atc, salonpas patch o/nconside r gbn if worse 6.25 - [facility] l update lower back xray c cc: pssp Hyperlipidemia 21265397 E78.00 cont statin - recheck lipids ac awv History of squamous cell carcinoma of skin 744149874 Z85.828 719983 encouraged pt to cont to f/u c ne derm [id number] Emigdio Gutierrez MD Main Office [address] [facility] [address] [place] [address] 03/10/2025 09:16:31 03/10/2025 10:37:04 Adult health examination 041455217 Z00.00 mammo & colon utd Advance di rective discussed with patient 190451335 Z71.89 Chronic low back pain 27 6895381 M54.50 cont f/u c pain management - cont prn ibu - rarely, consider tyl atc, salonpas patch o/nconside r gbn if worse 6.25 - [facility] l update lower back xray c cc: pssp 7.25 - seen [facility] - had mri, pending bone density Hyperlipidemia 21651625 E78.00 cont statin - recheck lipids ac awv History of squamous cell carcinoma of skin 769211106 Z85.828 956079 encouraged pt to cont to f/u c ne derm 7.25 - seen by derm, stable Irritable bowel syndrome 41778616 K58.9 cont meds, f/u c gi - next in a few wkscolon utd consider colace qd/qod Osteoporosis 04876066 M8 1.0 had reclast x 1 a few yrs ago, cont f/u c endo yrly, cont calcium/vi t d as dir by endopendin g vit dcont f/u c endo Migraine 10995780 G43.90 9 a little worse lately - prn triptan - will give re-trial of amitriptyl ine 7.25 - stable lately Urinary incontinence 165 903070 R32 had pelvic floor PT, cont f/u c urogyn - had sx 4.22 - resolved Seasonal allergy 6325941 04 J30.2 62188 consider claritin qd Vitamin D deficiency 347 28341 E55.9 Impaired f asting glycemia 430992462 R73.01 596326 [id number] Emigdio Gutierrez MD Main Office [address] [facility] [address] [place] [address] 06/30/2025 13:27:01 06/30/2025 14:36:34 Dysuria 87744521 R30.0 SYMPTOMS:b urning with urination? nofrequenc y? yeshematur ia? nolower abdominal pain? yessymptom s similar to previous UTI? yes POSSIBLE CONTRAINDI CATIONS TO TELEPHONE TREATMENT: > 65 years of age? yesfevers? norecent UTI (within 1 month)? nonew low back pain? yesnausea or vomiting? no ? nohistory of interstiti al cystitis? no PROVIDER ACTION: Reviewed nursing notes?Mejia mmended action Antibiotic treatment Urinary symptoms 1801667 08 R39.9 15451887 send urine for c&s to r/o uti Chronic constipation 236 937132 K59.09 303630 6.25 axr - moderate amount of stool retention - recommend that you take a stool softener like colace or miralax... rec laxaclear 1/2 - 1 scoop 1-2x/day Chronic low back pain 27 0325881 M54.50 cont f/u c pain management - cont prn ibu - rarely, consider tyl atc, salonpas patch o/nconside r gbn if worse 6.25 - [facility]wil l update lower back xray c cc: pssp 7.25 - seen [facility] - had mri, pending bone density 10.25 [facility] Lower abdominal pain 545 82944 R10.30 947120 mild - suspect d/t underlying constipati on (c overflow diarrhea) - see abovertc 1 wk - if no sig improvemen t then will consider further radiologic al testing Fatigue 15744373 R53.83 4475308 Health Concerns Section Related Observation LastModified by Organization Detai ls LastModified Time None Recorded Concern Status LastModified by Organization Details LastModified Time None Recorded Advance Directives Directive Y: Payers Insurance Date Sequence Insurance Name Policy Number Policy Zaragoza Covered Member ID Zaragoza Member ID Guarantor Name 03/10/2025 1 [place] [id number] Sharlene Vasquez [id number] Sharlene Vasquez 06/30/2025 2 [place] [id number] Sharlene Vasquez [id number] Sharlene Vasquez 06/30/2025 1 [place] [facility] Sharlene Vasquez [id number] Sharlene Vasquez 03/10/2025 1 [facility] [id number] Sharlene Vasquez [id number] Sharlene Vasquez 03/10/2025 2 [place] [facility] Sharlene Vasquez [id number] Sharlene Vasquez Notes Date Note Type Note Provider Name and Address Organization Details Recorded Time 02/25/2023 text/html Medicare Annual Wellness VisitReported by PatientSocial/Behavior al HistoryFor diet and nutrition, patient reportshealthy diet. For fracture risk, patient reportsno history of fractures. For physical activity, patient reportsrecent increase in physical activity,discussed weightbearing activities, anddiscussed exercise habits.Mental Status:For concentration and memory, patient reportsforgetting wordsbut reportsno memory lapses or loss. For depression risk, patient reportsno significant changes in weight,no sleep disturbances or insomnia, andno history of depression. For speech/motor difficulties, patient reportsno speech difficultiesandno difficulty writing/copying.Functi onal AbilityFor vision, patient reportsslow partial vision loss (wears glasses, cont f/u c eye md). For home safety, patient reportsfire armsbut reportsworking smoke/co detectors,use of seatbelts, andgood lighting in the home. For hearing, patient reportsno loss of hearing. For activities of daily living, patient reportsable to bathe with limited or no assistance,able to contol urination and bowels,able to dress with limited or no assistance,able to feed self with limited or no assistance,able to get out of chair or bed with limited or no assistance,able to groom with limited or no assistance, andable to toilet with limited or no assistance. For instrumental activities of daily living, patient reportsable to do house work with limited or no assistance,able to grocery shop with limited or no assistance,able to manage medications with limited or no assistance,able to manage money with limited or no assistance,able to prepare meals with limited or no assistance, andable to use the phone with limited or no assistance. For falls risk assessment, patient reportsno frequent falls while walking,no fall in the past year,no fall since last visit, andno dizziness/vertigo. Tita Medrano PA-C [address] [address], [place], [address], [facility] 02/25/2023 13:27:31 03/02/2024 text/html Medicare Annual Wellness VisitReported by PatientSocial/Behavior al HistoryFor diet and nutrition, patient reportshealthy diet. For fracture risk, patient reportsno history of fractures. For physical activity, patient reportsrecent increase in physical activity,discussed weightbearing activities, anddiscussed exercise habits.Mental Status:For concentration and memory, patient reportsforgetting wordsbut reportsno memory lapses or loss. For depression risk, patient reportsno significant changes in weight,no sleep disturbances or insomnia, andno history of depression. For speech/motor difficulties, patient reportsno speech difficultiesandno difficulty writing/copying.Functi onal AbilityFor vision, patient reportsslow partial vision loss (wears glasses - reading/distance, cont f/u c eye md). For falls risk assessment, patient reportsdizziness/verti gobut reportsno frequent falls while walking,no fall in the past year, andno fall since last visit. For home safety, patient reportsfire armsbut reportsworking smoke/co detectors,use of seatbelts, andgood lighting in the home. For hearing, patient reportsno loss of hearing. For activities of daily living, patient reportsable to bathe with limited or no assistance,able to contol urination and bowels,able to dress with limited or no assistance,able to feed self with limited or no assistance,able to get out of chair or bed with limited or no assistance,able to groom with limited or no assistance, andable to toilet with limited or no assistance. For instrumental activities of daily living, patient reportsable to do house work with limited or no assistance,able to grocery shop with limited or no assistance,able to manage medications with limited or no assistance,able to manage money with limited or no assistance,able to prepare meals with limited or no assistance, andable to use the phone with limited or no assistance. Tita Medrano PA-C [address] [facility] [address], [place], [address], [facility] 03/02/2024 11:28:16 02/01/2025 text/html as per recent pt case:I'm very interested in the Intracept procedure for my back. I'm hoping you can send a referral to [facility], Kervin Gonzalez, so I can have a consult to see if this is something I would benefit from. she is fol by pain management q 3 months - reviewed last note 12.30.24 - but she does not do this newer procedure no b/b dysfxn Tita Medrano PA-C [address] [facility] [address], [place], [address], [facility] 02/01/2025 11:17:49 03/10/2025 text/html Medicare Annual Wellness VisitReported by PatientSocial/Behavior al HistoryFor physical activity, patient reportsdoes not exercise on a regular basisanddecreased physical activitybut reportsdiscussed weightbearing activities. For diet and nutrition, patient reportshealthy diet. For fracture risk, patient reportsno history of fractures.Mental Status:For concentration and memory, patient reportsforgetting wordsbut reportsno memory lapses or loss. For depression risk, patient reportsno significant changes in weight,no sleep disturbances or insomnia, andno history of depression. For speech/motor difficulties, patient reportsno speech difficultiesandno difficulty writing/copying.Functi onal AbilityFor vision, patient reportsslow partial vision loss (wears glasses - reading/distance, cont f/u c eye md). For home safety, patient reportsfire armsbut reportsworking smoke/co detectors,use of seatbelts, andgood lighting in the home. For hearing, patient reportsno loss of hearing. For activities of daily living, patient reportsable to bathe with limited or no assistance,able to contol urination and bowels,able to dress with limited or no assistance,able to feed self with limited or no assistance,able to get out of chair or bed with limited or no assistance,able to groom with limited or no assistance, andable to toilet with limited or no assistance. For instrumental activities of daily living, patient reportsable to do house work with limited or no assistance,able to grocery shop with limited or no assistance,able to manage medications with limited or no assistance,able to manage money with limited or no assistance,able to prepare meals with limited or no assistance, andable to use the phone with limited or no assistance. For falls risk assessment, patient reportsno frequent falls while walking,no fall in the past year,no fall since last visit, andno dizziness/vertigo. Tita Medrano PA-C [address] [address], [place], [address], [facility] [place] 03/10/2025 10:37:54 06/30/2025 text/html c/o dysuria, urgency but not frequency x few wksave bm 3-4x/day - denies constipation - soft/looseno h/o kidney stonesc/o dull ache LLQ and RLQ - different from her typical LBPno hematuria, brbpr reviewed 6.2.25 xray c pt - Sharlene - I hope this helps the specialist for the intracept procedure. BTW - also found to have moderate amount of stool retention - recommend that you take a stool softener like colace or miralax...- Pat she did not qualify for intracept - fol by pssp urine dipstick negative Tita Medrano PA-C [address] [address], [place], [address], [facility] 06/30/2025 17:18:01 OBGyn Episode No OBEpisode recorded.
--- OUTSIDE RECORDS SUMMARY | 2025-07-12 11:14 | XMS_ITS | Data Portability ---
Author Organization [facility] Pain Managem ent PAIN OFFICE Address [address] [facility] [address] [place] [address] Care Team Providers Care Belt Loop Maker Name Role Phone MICHAEL DOE Referring Provider TITA MEDRANO Primary Care Provider [phone] Assessment Encounter Date Assessment Date Assessment LastModified [...] By Organization Details Last Modified Time 12/24/2023 [id number] She was advised against bed rest lasting longer than four days and to continue activities as tolerated. [email or web address] Not available 12/24/2023 16:10:45 02/14/2024 [id number] She was advised against bed rest lasting longer than four days and to continue activities as tolerated. [email or web address] Not available 02/14/2024 11:05:14 05/14/2024 [id number] She was advised against bed rest lasting longer than four days and to continue activities as tolerated. [email or web address] Not available 05/14/2024 16:52:40 09/30/2024 [id number] She was advised against bed rest lasting longer than four days and to continue activities as tolerated. [email or web address] Not available 09/30/2024 14:56:19 12/30/2024 [id number] She was advised against bed rest lasting longer than four days and to continue activities as tolerated. [email or web address] Not available 12/30/2024 11:31:33 Reason for Referral None Reported. Problems Name Problem SNOMED Code Status Onset Date Resolution Date Notes Provider Name and Address Organization Details Recorded Time Lumbosacral spondylosis without myelopathy 76382385 Active Joleen mata MD [address] [facility] , [address], [place], [address], [place] [facility] 14:09:24 Problem Notes None recorded. Procedures Surgical History Date Name Laterality Status Provider Name and Address Organization Details Recorded Time 12/31/19 25 Fluoroscopic Guided Lumbar Facet Steroid Injections of levels completed Joleen Ramirez MD [address], [place], [address], [place] [facility] 12/30/2024 11:32:43 09/30/19 25 Fluoroscopic Guided Lumbar Facet Steroid Injections of levels completed Joleen Ramirez MD [address] , [address], [place], [address], [place] [facility] 09/30/2024 15:32:03 05/14/20 24 Fluoroscopic Guided Lumbar Facet Steroid Injections of levels completed Joleen Ramirez MD [address] , [address], [place], [address], [place] [facility] 05/14/2024 16:53:31 12/24/19 24 Radiofrequency of Lumbar/Sacral medial branches supplying the facets under fluoroscopic guidance completed Joleen Ramirez MD [address] , [address], [place], [address], [place] [facility] 12/24/2023 16:10:14 07/31/20 23 Fluoroscopic Guided Lumbar Facet Steroid Injections of levels completed Joleen Ramirez MD [address] , [address], [place], [address], [place] [facility] 07/31/2023 09:58:57 04/24/20 23 Fluoroscopic Guided Lumbar Facet Steroid Injections of levels completed Joleen Ramirez MD [address] , [address], [place], [address], [place] [facility] 04/24/2023 10:55:11 01/16/20 23 Fluoroscopic Guided Lumbar Facet Steroid Injections of levels completed Joleen Ramirez MD [address] , [address], [place], [address], [place] [facility] 01/15/2023 [...] 99 % 5 158/80 mm[Hg] Stephania Garcia [facility] 5 10:56:25 Date Recorded Body height Heart rate Oxygen saturation Oxygen saturation in Arterial blood by Pulse oximetry Systolic And Diastolic Provider Name and Address Organization Details Last Updated DateTime 4 160.02 cm 65 /min 99 % 99 % 150/74 mm[Hg] Dania Samayoa [facility] Pain Management 4 14:28:28 Date Recorded Body height Heart rate Oxygen saturation Oxygen saturation in Arterial blood by Pulse oximetry Pain severity - 0-10 verbal numeric rating [Score] - Reported Systolic And Diastolic Provider Name and Address Organization Details Last Updated DateTime 5 160.02 cm 66 /min 100 % 100 % 5 136/77 mm[Hg] Stephania Garcia [facility] Pain Management 5 11:09:24 Date Recorded Body height Body mass index (BMI) Body weight Heart rate Oxygen saturation Oxygen saturation in Arterial blood by Pulse oximetry Pain severity - 0-10 verbal numeric rating [Score] - Reported Systolic And Diastolic Provider Name and Address Organization Details Last Updated DateTime 4 160.02 cm 23 kg/m2 53860.0 1 g 61 /min 98 % 98 % 0 124/62 mm[Hg] Joleen mata MD [address] , [address], [place], [address], [place] [facility] 4 [...] Have An Advance Directive? Yes Zac, Spouse [email or web address] Information not available 01/14/2023 Are You Blind Or Do You Have Difficulty Seeing? No [email or web address] Information not available 01/14/2023 In The 14 Days Before Symptom Onset, Have You Had Close Contact With A Laboratory-confir med COVID-19 While That Case Was Ill? No [email or web address] Information not available 01/14/2023 In The 14 Days Before Symptom Onset, Have You Had Close Contact With A Person Who Is Under Investigation For COVID-19 While That Person Was Ill? No Information not available 01/14/2023 Have You Been To An Area Known To Be High Risk For COVID-19? No [email or web address] Information not available 01/14/2023 Are You Deaf Or Do You Have Serious Difficulty Hearing? No [email or web address] Information not available 01/14/2023 What Is The Highest Grade Or Level Of School You Have Completed Or The Highest Degree You Have Received? [id number] [email or web address] Information not available 01/14/2023 How Many Days Of Moderate To Strenuous Exercise, Like A Brisk Walk, Did You Do In The Last 7 Days? 0 [email or web address] Information not available 01/14/2023 What Was The Date Of Your Most Recent Tobacco Screening? 01/14/2023 [email or web address] Information not available 01/14/2023 What Is Your Relationship Status? [email or web address] Information not available 01/14/2023 How Many Years Have You Smoked Tobacco? 10 [email or web address] Information not available 01/14/2023 Do You Have Difficulty Walking Or Climbing Stairs? No Information not available 01/14/2023 Sex: Unknown Functional Status Question Answer Note LastModified by Organizat ion Details LastModified Time Do you or have you ever used any other forms of tobacco or nicotine? No Information not available 01/14/2023 What is your level of alcohol consumption? Occasional [email or web address] Information not available 01/14/2023 Are you currently employed? No retireed [email or web address] Information not available 01/14/2023 Do you have difficulty doing errands alone? No [email or web address] Information not available 01/14/2023 Do you have difficulty dressing, bathing, grooming, or toileting? No Information not available 01/14/2023 Mental Status Question Answer Note LastModified by Organization D etails LastModified Time Do you feel stressed (tense, restless, nervous, or anxious, or unable to sleep at night)? [id number] [email or web address] Information not available 01/14/2023 Family History Relationship Description Onset Age of this Age Resolved Age Notes LastModified by Organization Details LastModified Time Father No current problems or disability 92 dies from natura l causes [email or web address] Not available 01/14/2023 13:38:07 Mother No current problems or disability 89 alzhei mers [email or web address] Not available 01/14/2023 13:38:23 Medical History Condition [...] ICD10 Code Diagnosis IMO Codes Diagnosis Note [id number] Joleen Ramirez MD [facility] [address] [facility] [place] [address] 01/14/2023 13:14:29 01/14/2023 14:21:05 Lumbosacral spondylosis without myelopathy 41810817 M47.817 Degenerati on of lumbar intervertebral disc 41735217 M51.36 [id number] Joleen Ramirez MD [facility] [address] [facility] [place] [address] 01/15/2023 14:53:36 01/15/2023 16:26:55 Lumbosacral spondylosis without myelopathy 98467617 M47.817 Degenerati on of lumbar intervertebral disc 19621681 M51.36 [id number] Joleen Ramierz MD [facility] [address] [place] [address] 02/14/2023 11:22:50 02/14/2023 13:38:08 Lumbosacral spondylosis without myelopathy 47511269 M47.817 Degenerati on of lumbar intervertebral disc 95949857 M51.36 [id number] Joleen Ramirez MD [facility] [address] [facility] [place] [address] 03/28/2023 15:20:08 03/28/2023 16:04:19 Lumbosacral spondylosis without myelopathy 54428244 M47.817 Degenerati on of lumbar intervertebral disc 09076622 M51.36 [id number] Joleen Ramirez MD [facility] [address] [place] [address] 04/24/2023 10:18:42 04/24/2023 14:15:42 Lumbosacral spondylosis without myelopathy 91466255 M47.817 Degenerati on of lumbar intervertebral disc 73535604 M51.36 [id number] Joleen Ramirez MD [facility] [address] [place] [address] 07/01/2023 10:57:11 07/01/2023 11:32:18 Lumbosacral spondylosis without myelopathy 28324752 M47.817 Degenerati on of lumbar intervertebral disc 78088952 M51.36 69953 Joleen Ramirez MD PAIN OFFICE [address] [facility] [place] [address] 07/31/2023 09:21:55 07/31/2023 10:09:05 Lumbosacral spondylosis without myelopathy 03831593 M47.817 Degenerati on of lumbar intervertebral disc 35966521 M51.36 [id number] Joleen Ramirez MD PAIN OFFICE [address] [facility] [place] [place] [address] 10/11/2023 08:52:22 10/11/2023 11:33:21 Lumbosacral spondylosis without myelopathy 52429169 M47.817 Degenerati on of lumbar intervertebral disc 32863368 M51.36 [id number] Joleen Ramirez MD PAIN OFFICE [address] [facility] [place] [address] 12/24/2023 14:07:51 12/24/2023 16:14:07 Lumbosacral spondylosis without myelopathy 03559943 M47.817 Degenerati on of lumbar intervertebral disc 46129026 M51.36 [id number] Joleen Ramirez MD PAIN OFFICE [address] [facility] [place] [address] 02/14/2024 10:46:07 02/14/2024 11:06:40 Lumbosacral spondylosis without myelopathy 44483556 M47.817 Degenerati on of lumbar intervertebral disc 74885701 M51.36 [id number] Joleen Ramirez MD PAIN OFFICE [address] [facility] [place] [address] 05/14/2024 10:52:51 05/14/2024 17:03:56 Lumbosacral spondylosis without myelopathy 35337112 M47.817 Degenerati on of lumbar intervertebral disc 35576283 M51.36 [id number] Joleen Ramirez MD PAIN OFFICE [address] [place] [address] 09/30/2024 10:47:10 09/30/2024 15:59:14 Lumbosacral spondylosis without myelopathy 09214628 M47.817 Degenerati on of lumbar intervertebral disc 14270607 M51.369 [id number] Joleen Ramirez MD PAIN OFFICE [address] [place] [address] 12/30/2024 10:49:14 12/30/2024 15:51:06 Lumbosacral spondylosis without myelopathy 01030353 M47.817 Degenerati on of lumbar intervertebral disc 76179461 M51.369 Health Concerns Section Related Observation LastModified by Organization Detai ls LastModified Time None Recorded Concern Status LastModified by Organization Details LastModified Time None Recorded Advance Directives Directive Y: zac, spouse Payers Insurance Date Sequence Insurance Name Policy Number Policy Zaragoza Covered Member ID Zaragoza Member ID Guarantor Name 08/12/2024 2 [place] [id number] Sharlene Vasquez [id number] Sharlene Teaguecottrivka 12/27/2024 2 [place] [id number] Sharlene Vasquez [id number] Sharlene Riverattrivka 12/27/2024 1 [place] [employer] Sharlene Vasquez [id number] Sharlene Vsaquez Notes Date Note Type Note Provider Name and Address Organization Details Recorded Time 12/24/2023 text/html She is here for a radiofrequency ablation of right lumbar medial branches of L, L5 and S1 nerves under fluoroscopic guidance Joleen Ramirez MD [address] , [address], [place], [address], [facility] - [facility] 12/24/2023 16:15:21 [...] bowel incontinence. Thenu Manikantan, MD [address] [facility] , [address], [place], [address], [place] [facility] 02/17/2024 08:54:46 05/14/2024 text/html She is here for a right lumbar facet joint injection under fluoroscopic guidance Joleen Ramirez MD [address] [facility] [facility] [address], [place], [address], [place] [facility] 05/15/2024 09:56:16 09/30/2024 text/html She is here for a right lumbar facet joint injection under fluoroscopic guidance Joleen Ramirez MD [address] , [address], [place], [address], [place] [facility] 10/01/2024 14:24:12 12/30/2024 text/html She is here for a right lumbar facet joint injection under fluoroscopic guidance Joleen Ramirez MD [address] , [address], [place], [address], [place] [facility] 12/30/2024 15:54:37 OBGyn Episode No OBEpisode recorded.
--- OUTSIDE RECORDS SUMMARY | 2025-07-12 11:15 | XMS_ITS | Clinical Summary ---
Author Organization [facility] [address] [facility] Address [address] [place] [address] Phone Care Team Providers Care Group Insurance Special Agent Name Role Phone Richie Bateman Primary Care Provider + [phone] Allergies No known active allergies Medications hydrocortisone [...] Migraine without aura 03/30/2025 Fecal smearing 03/30/2025 Social History Tobacco Use Types Packs/Day Years [...] 75+ series) 2025 COVID-19 Vaccine ( - season) 2025 06/08/2021, 11/12/2020, 10/20/2020 Influenza Vaccine [...] inal Result from Last 3 Months [facility] [id number] MEDICARE Care Teams Group Insurance Special Agent Relationship Specialty Start Date End Date Richie Bat[place] [address] [address] PCP - General Internal Medicine 03/30/25
== END 2025-07-12 10:25 | disposition home or self-care (01) ==
LOC: HO.ENCR 09:52
PROVIDERS: PCP Physician Assistant Medical; Visit Provider Internal Medicine Endocrinology, Diabetes & Metabolism
DX: M81.0 Age-related osteoporosis without current pathological fracture (principal)
CPT/HCPCS: 99213

== ENCOUNTER → 2025-07-12 09:51 | Outpatient (BNVA) | payer MEDICARE, SELFPAY | PROVIDERS: PCP Physician Assistant Medical; Visit Provider Internal Medicine Endocrinology, Diabetes & Metabolism | DX: M81.0 Age-related osteoporosis without current pathological fracture (principal) | CPT/HCPCS: 99212 ==